=== PATIENT | male | born 1945 | race Caucasian/White ===

== ENCOUNTER → 2016-03-10 | Outpatient (CLI) | payer MEDICARE, OTHER ==
--- NOTE | 2016-03-10 13:40 | NM ---
EXAMINATION TYPE: NM bone 3 phase DATE OF EXAM: 03/10/2016 1:24 PM COMPARISON: NONE HISTORY: Pain right fifth toe Triple phase bone scintigraphy was performed following the injection of27.1 mCi Tc 99m MDP. Immediat e images and 5.5 hours post injection images acquired.Due to camera error no flow images were obtaine d. FINDINGS: There is mild increased radiotracer accumulation noted to involve the right fifth toe on the blood po ol and delayed images which is nonspecific and could be related to degenerative change, posttraumatic change and less likely osteomyelitis. There is also uptake noted to involve the third and first toes as well as moderately severe uptake noted to involve the tibiotalar joint space and region of the ta rsal navicular. IMPRESSION: Nonspecific increased radiotracer accumulation as discussed.
== END | disposition home or self-care (01) ==
LOC: RADNMMAIN 07:07
PROVIDERS: ATTEND Podiatrist
DX: L03.031 Cellulitis of right toe (principal)
CPT/HCPCS: 78315; A9503

== ENCOUNTER 2016-05-03 22:44 | Emergency (ER) | payer MEDICARE, OTHER ==
[2016-05-03 22:51] VITALS: RESP 18
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
[2016-05-04 00:39] LABS: Appearance,Urine Turbid (Clear); Bacteria,Urine Many /hpf; Bilirubin,Urine Negative (Negative); Glucose,Urine (UA) Negative (Negative); Ketones,Urine Negative (Negative); Leukocyte Esterase,Urine Large (Negative); Mucus,Urine Rare /hpf; Nitrite,Urine Positive (Negative); PH, Urine 5.5 (5.0-8.0); Particle Count 25761; Protein,Urine 1+ (Negative); RBC,Urine 72 /hpf (0-5); Specific Gravity,Urine 1.014 (1.001-1.035); UA Billing (MACRO vs. MICRO) MICRO; Urobilinogen,Urine <2.0 mg/dL (<2.0); WBC,Urine >182 /hpf (0-5)
[2016-05-04] MEDS ORDERED: LEVOFLOXACIN 500 MG TAB PO STA (00:45)
[2016-05-04 01:07] VITALS: BP 139/69; PULSE 88; TEMP 97.8
--- NOTE | 2016-05-04 01:33 | XR ---
EXAM: XR Chest, 2 Views. CLINICAL HISTORY: Reason: Pain TECHNIQUE: Frontal and lateral views of the chest. COMPARISON: Portable chest radiograph 10/08/2014 FINDINGS: Lungs: Lungs are clear. Pleural space: No evidence of pleural effusion. No pneumothorax. Heart: Heart size and mediastinal structures are within normal limits. Mediastinum: Unremarkable. Bones/joints: Unremarkable. Tubes, lines and devices: Dual lead cardiac pacer is present. IMPRESSION: No evidence of active chest disease.
== END 2016-05-04 01:08 | disposition home or self-care (01) ==
LOC: EC 22:44
DX: N39.0 Urinary tract infection, site not specified (principal); I10 Essential (primary) hypertension; I25.2 Old myocardial infarction; E07.9 Disorder of thyroid, unspecified; F31.9 Bipolar disorder, unspecified; F41.9 Anxiety disorder, unspecified; M19.90 Unspecified osteoarthritis, unspecified site; J45.909 Unspecified asthma, uncomplicated; J44.9 Chronic obstructive pulmonary disease, unspecified; Z87.891 Personal history of nicotine dependence; Z79.899 Other long term (current) drug therapy; Z87.448 Personal history of other diseases of urinary system; Z95.0 Presence of cardiac pacemaker
CPT/HCPCS: 51798; 71020; 81001; 87077; 87086; 87186; 99284

== ENCOUNTER 2016-05-12 22:37 | Emergency (ER) | payer MEDICARE, OTHER ==
[2016-05-12 23:03] VITALS: BP 153/84; PULSE 100; RESP 16; TEMP 97.8
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
== END 2016-05-13 00:43 | disposition home or self-care (01) ==
LOC: EC 22:37
DX: F31.9 Bipolar disorder, unspecified (principal); E07.9 Disorder of thyroid, unspecified; I10 Essential (primary) hypertension; F41.9 Anxiety disorder, unspecified; R45.850 Homicidal ideations; Z89.512 Acquired absence of left leg below knee; Z96.651 Presence of right artificial knee joint; Z87.891 Personal history of nicotine dependence; Z79.899 Other long term (current) drug therapy
CPT/HCPCS: 82075; 99284

== ENCOUNTER → 2017-04-20 | Outpatient (CLI) | payer MEDICARE, OTHER ==
[2017-04-20 10:40] LABS: Uric Acid 6.6 mg/dL (3.5-8.5)
== END | disposition home or self-care (01) ==
LOC: LABWHC1 10:11
PROVIDERS: ATTEND Podiatrist
DX: M10.9 Gout, unspecified (principal)
CPT/HCPCS: 36415; 82565; 84450; 84460; 84520; 84550

== ENCOUNTER → 2018-01-07 | Outpatient (CLI) | payer MEDICARE, OTHER ==
[2018-01-07 16:44] LABS: Uric Acid 5.4 mg/dL (3.7-8.7)
== END | disposition home or self-care (01) ==
LOC: LABWHC1 10:11
PROVIDERS: ATTEND Podiatrist
DX: M10.9 Gout, unspecified (principal)
CPT/HCPCS: 36415; 82565; 84450; 84460; 84520; 84550

== ENCOUNTER 2018-08-11 07:50 | Emergency (ER) | payer MEDICARE, OTHER ==
[2018-08-11 08:21] VITALS: RESP 18
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
--- NOTE | 2018-08-11 08:29 | CT ---
EXAMINATION TYPE: CT cervical spine wo con DATE OF EXAM: 08/11/2018 COMPARISON: 12/23/2014 HISTORY: Neck pain for [address] DLP: 376.1 mGycm Automated exposure control for dose reduction was used. TECHNIQUE: CT scan of the cervical spine is obtained without contrast, axial images are obtained, sa gittal and coronal reformatted images are also reviewed. FINDINGS: Cervical spine is visualized in its entirety from C1 through upper thoracic levels, demonst rates satisfactory alignment without evidence of acute fracture or dislocation. Prevertebral soft ti ssue appears within normal limits. The C1-C2 articulation is within normal limits on the coronal chilango ges. Assessment spinal canal is nondiagnostic due to artifact resolution. There is multilevel facet arthropathy and degenerative disc disease with most marked findings C5-6 an d C6-C7. Severe left-sided foraminal encroachment at C5-C6 moderate to severe foraminal encroachment bilaterally at C6-C7. 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 Pacemaker leads are i ncidentally noted. IMPRESSION: 1. Assessment spinal canal nondiagnostic due to resolution artifact. This requires MRI for proper ernesto luation. 2. Multilevel degenerative disc disease and facet arthropathy with multilevel foraminal encroachment. Correlate with MRI.
[2018-08-11 09:41] VITALS: BP 121/87; PULSE 77; TEMP 98
== END 2018-08-11 09:45 | disposition home or self-care (01) ==
LOC: EC 07:50
DX: S16.1XXA Strain of muscle, fascia and tendon at neck level, initial encounter (principal); M62.838 Other muscle spasm; J44.9 Chronic obstructive pulmonary disease, unspecified; I10 Essential (primary) hypertension; I25.2 Old myocardial infarction; E07.9 Disorder of thyroid, unspecified; F41.9 Anxiety disorder, unspecified; F31.9 Bipolar disorder, unspecified; F17.200 Nicotine dependence, unspecified, uncomplicated; Z79.890 Hormone replacement therapy; Z79.899 Other long term (current) drug therapy; Z95.0 Presence of cardiac pacemaker; Z96.651 Presence of right artificial knee joint; Z89.512 Acquired absence of left leg below knee; W05.0XXA Fall from non-moving wheelchair, initial encounter; Y92.009 Unspecified place in unspecified non-institutional (private) residence as the place of occurrence of the external cause
CPT/HCPCS: 72125; 99284

== ENCOUNTER 2019-03-07 11:13 | Emergency (ER) | payer MEDICARE, OTHER ==
[2019-03-07 11:17] VITALS: RESP 20
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
--- NOTE | 2019-03-07 12:42 | CT ---
EXAMINATION TYPE: CT brain [place] DATE OF EXAM: 03/07/2019 COMPARISON: None HISTORY: Fall today with head injury. CT DLP: 1505.[address] of the brain was performed. The ventricles, basal cisterns and sulci overlying the cerebral convexities demonstrate moderate enla rgement. There is no evidence for intracranial hemorrhage or sulcal effacement. There is decreased attenuatio n about the periventricular white matter and deep white matter of both cerebral hemispheres, compatib le with chronic small vessel ischemia. No mass effects are seen. If symptoms persist consider MRI. Osseous calvarium is intact. IMPRESSION: 1. Age related atrophic and chronic small vessel ischemic change without acute intracranial process seen at this time. CT Cervical Spine: Unenhanced CT of the cervical spine was performed with bone and soft tissue window settings submitted . Coronal and sagittal reconstruction is obtained. There is normal alignment and prevertebral soft tissues. No evidence for acute cervical fracture . Scattered degenerative disc disease and spondylosis. Biapical scarring. IMPRESSION: 1. No evidence for acute fracture or subluxation of the cervical spine.
[2019-03-07 13:29] VITALS: BP 129/80; PULSE 91; TEMP 97
== END 2019-03-07 13:29 | disposition home or self-care (01) ==
LOC: EC 11:13
DX: S00.01XA Abrasion of scalp, initial encounter (principal); H21.561 Pupillary abnormality, right eye; J44.9 Chronic obstructive pulmonary disease, unspecified; I10 Essential (primary) hypertension; I25.2 Old myocardial infarction; E07.9 Disorder of thyroid, unspecified; H54.61 Unqualified visual loss, right eye, normal vision left eye; M19.90 Unspecified osteoarthritis, unspecified site; F31.9 Bipolar disorder, unspecified; F41.9 Anxiety disorder, unspecified; F17.200 Nicotine dependence, unspecified, uncomplicated; Z79.890 Hormone replacement therapy; Z79.899 Other long term (current) drug therapy; Z86.14 Personal history of Methicillin resistant Staphylococcus aureus infection; Z89.512 Acquired absence of left leg below knee; Z95.0 Presence of cardiac pacemaker; Z96.651 Presence of right artificial knee joint; W20.8XXA Other cause of strike by thrown, projected or falling object, initial encounter; Y92.009 Unspecified place in unspecified non-institutional (private) residence as the place of occurrence of the external cause
CPT/HCPCS: 70450; 72125; 99284

== ENCOUNTER 2019-04-07 11:53 | Inpatient (IN) | payer MEDICARE, OTHER ==
[2019-04-07] MEDS ORDERED: IBUPROFEN 600 MG TAB PO STA (12:39)
[2019-04-07] MEDS ORDERED: SODIUM CHLORIDE 0.9% 1,000 ML IV STA (12:39)
[2019-04-07] MEDS ORDERED: methylPREDNISolone SOD SUCCI 125 MG/2 ML VIAL IV STA (12:40)
[2019-04-07] MEDS ORDERED: IPRATROPIUM-ALBUTEROL 3 ML NEB INHALATION STA (12:40)
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
[2019-04-07 13:26] LABS: Basophils # (A) 0.1 k/uL (0-0.2); Basophils % (A) 1 %; Eosinophils # (A) 0.3 k/uL (0-0.7); Eosinophils % (A) 4 %; HCT 40.8 % (39.0-53.0); HGB 13.8 gm/dL (13.0-17.5); Lymphocytes # (A) 0.5 k/uL (1.0-4.8); Lymphocytes % (A) 6 %; MCH 30.8 pg (25.0-35.0); MCHC 33.9 g/dL (31.0-37.0); Mean Platelet Volume 7.7; Monocytes # (A) 0.4 k/uL (0-1.0); Monocytes % (A) 5 %; Neutrophils # (A) 7.4 k/uL (1.3-7.7); Neutrophils % (A) 82 %; Platelet Count 193 k/uL (150-450); RBC 4.49 m/uL (4.30-5.90); RDW 14.4 % (11.5-15.5)
[2019-04-07 13:38] LABS: Albumin 4.3 g/dL (3.5-5.0); Calcium 8.7 mg/dL (8.4-10.2); Potassium 4.4 mmol/L (3.5-5.1); Total Bilirubin 1.2 mg/dL (0.2-1.3)
[2019-04-07 13:46] LABS: Amorphous Sediment,Urine Rare /hpf; Appearance,Urine Clear (Clear); Bacteria,Urine Moderate /hpf; Bilirubin,Urine Negative (Negative); Blood,Urine Negative (Negative); Color,Urine Yellow; Glucose,Urine (UA) Negative (Negative); Hyaline Casts,Urine 3 /lpf (0-2); Ketones,Urine Negative (Negative); Leukocyte Esterase,Urine Large (Negative); Mucus,Urine Rare /hpf; Nitrite,Urine Negative (Negative); PH, Urine 5.5 (5.0-8.0); Protein,Urine 1+ (Negative); RBC,Urine 4 /hpf (0-5); Specific Gravity,Urine 1.014 (1.001-1.035); Squamous Epithelial Cell,Urine 1 /hpf (0-4); Urobilinogen,Urine <2.0 mg/dL (<2.0); WBC,Urine 35 /hpf (0-5)
--- NOTE | 2019-04-07 15:14 | XR ---
EXAMINATION TYPE: XR chest 2V DATE OF EXAM: 04/07/2019 COMPARISON: Prior chest x-ray May 04, 2016. HISTORY: Fever. TECHNIQUE: Frontal and lateral views of the chest are obtained. FINDINGS: The osseous structures are intact. Persistent cardiomegaly with dual lead pacemaker and at herosclerotic aortic knob. Chronic parenchymal changes with some increased interstitial markings. Ret iculonodular opacities bibasilar region on lateral view unchanged from prior study presumed chronic. No new suspicious focal airspace opacity, pleural effusion, or pneumothorax evident bilaterally. IMPRESSION: Perhaps mild interstitial edema on background chronic changes and cardiomegaly. No new s uspicious focal infiltrate.
[2019-04-07] MEDS ORDERED: ACETAMINOPHEN TAB 325 MG TAB PO PRN (15:31)
[2019-04-07] MEDS: methylPREDNISolone SOD SUCCI 125 MG/2 ML VIAL IV SCH ×2 (17:39→23:09)
[2019-04-07] MEDS: CEPHALEXIN 500 MG CAP PO SCH ×2 (17:43→22:01)
[2019-04-07] MEDS ORDERED: ALBUTEROL NEBULIZED 2.5 MG/3 ML INHALATION PRN (20:17)
[2019-04-07] MEDS ORDERED: Acetaminophen-Codeine 300-30mg TAB PO SCH (20:30)
[2019-04-07] MEDS: OSELTAMIVIR 75 MG CAP PO SCH (22:01)
[2019-04-07] MEDS: QUEtiapine 100 MG TAB PO SCH (22:01)
[2019-04-07] MEDS ORDERED: Acetaminophen-Codeine 300-30mg TAB PO PRN (23:30)
[2019-04-08] MEDS: methylPREDNISolone SOD SUCCI 125 MG/2 ML VIAL IV SCH ×4 (05:42→23:53)
[2019-04-08] MEDS: LEVOTHYROXINE 125 MCG TAB PO SCH (05:43)
[2019-04-08] MEDS: IPRATROPIUM-ALBUTEROL 3 ML NEB INHALATION PRN ×2 (08:04→11:51)
[2019-04-08] MEDS: CEPHALEXIN 500 MG CAP PO SCH ×3 (08:31→20:34)
[2019-04-08] MEDS: ALLOPURINOL 300 MG TAB PO SCH (08:31)
[2019-04-08] MEDS: DULoxetine HCL 60 MG CAPSULE.DR PO SCH (08:31)
[2019-04-08] MEDS: METOPROLOL TARTRATE 25 MG TAB PO SCH (08:31)
[2019-04-08] MEDS: OSELTAMIVIR 75 MG CAP PO SCH ×2 (08:31→20:34)
[2019-04-08] MEDS: FENOFIBRATE 160 MG TAB PO SCH (08:31)
[2019-04-08] MEDS: buPROPion XL 300 MG TAB.ER.24H PO SCH (08:32)
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
[2019-04-08] MEDS: QUEtiapine 100 MG TAB PO SCH (20:33)
[2019-04-09] MEDS: LEVOTHYROXINE 125 MCG TAB PO SCH (05:06)
[2019-04-09] MEDS: methylPREDNISolone SOD SUCCI 125 MG/2 ML VIAL IV SCH ×2 (05:06→11:51)
[2019-04-09] MEDS: OSELTAMIVIR 75 MG CAP PO SCH (07:30)
[2019-04-09] MEDS: ALLOPURINOL 300 MG TAB PO SCH (07:30)
[2019-04-09] MEDS: FENOFIBRATE 160 MG TAB PO SCH (07:30)
[2019-04-09] MEDS: METOPROLOL TARTRATE 25 MG TAB PO SCH (07:30)
[2019-04-09] MEDS: CEPHALEXIN 500 MG CAP PO SCH (07:30)
[2019-04-09] MEDS: DULoxetine HCL 60 MG CAPSULE.DR PO SCH (07:30)
[2019-04-09] MEDS: buPROPion XL 300 MG TAB.ER.24H PO SCH (07:32)
[2019-04-09 08:47] LABS: Basophils % (A) 0 %; Eosinophils % (A) 0 %; HCT 38.7 % (39.0-53.0); HGB 12.7 gm/dL (13.0-17.5); Lymphocytes # (A) 0.7 k/uL (1.0-4.8); Lymphocytes % (A) 7 %; MCH 30.8 pg (25.0-35.0); MCHC 32.8 g/dL (31.0-37.0); MCV 93.8 fL (80.0-100.0); Mean Platelet Volume 8.4; Monocytes # (A) 0.3 k/uL (0-1.0); Monocytes % (A) 2 %; Neutrophils # (A) 9.9 k/uL (1.3-7.7); Neutrophils % (A) 90 %; Platelet Count 204 k/uL (150-450); RBC 4.12 m/uL (4.30-5.90); RDW 14.4 % (11.5-15.5); WBC 10.9 k/uL (3.8-10.6)
[2019-04-09 08:59] LABS: Albumin 3.6 g/dL (3.5-5.0); Calcium 8.2 mg/dL (8.4-10.2); Potassium 4.6 mmol/L (3.5-5.1); Total Bilirubin 0.4 mg/dL (0.2-1.3); Total Protein 6.1 g/dL (6.3-8.2)
--- NOTE | 2019-04-09 12:38 | P.DS ---
Providers Date of admission: 04/09/19 10:04 Expected date of discharge: 04/09/19 Attending physician: Sumanth Mckeon Primary care physician: Sumanth Mckeon Hospital Course: Patient was admitted to the hospital with Influenza A, COPD exacerbation, and acute UTI, Tamiflu and Keflex initiated, he currently denies shortness of breath and reports feeling better and would like to be discharged home. Assessment: Influenza A+ COPD exacerbation secondary to influenza A Acute urinary tract infection culture pending History of asthma History of smoking remote History of hypothyroidism Hypertension controlled History of hyperlipidemia Plan: Discharge home with Tamiflu for influenza Discharge home with Keflex for acute UTI Follow up with Dr. Mckeon in 1-2 days Patient Condition at Discharge: Fair Plan - Discharge Summary Discharge Rx Participant: No New Discharge Prescriptions: New Cephalexin [Keflex] 500 mg PO TID 5 Days #15 cap Oseltamivir [Tamiflu] 75 mg PO Q12HR 3 Days #5 cap Continue QUEtiapine [SEROquel] 100 mg PO HS buPROPion HCL [Wellbutrin XL] 300 mg PO DAILY@0800 DULoxetine HCL [Cymbalta] 60 mg PO DAILY Albuterol Inhaler [Ventolin Hfa Inhaler] 2 puff INHALATION RT-Q4H PRN PRN Reason: Shortness Of Breath Fenofibrate Nanocrystallized [Tricor] 145 mg PO DAILY Metoprolol Tartrate [Lopressor] 25 mg PO DAILY Levothyroxine Sodium [Synthroid] 125 mcg PO DAILY buPROPion HCL [Wellbutrin XL] 150 mg PO DAILY Allopurinol [Zyloprim] 300 mg PO DAILY Acetaminophen-Codeine 300-30mg [Tylenol w/codeine #3] 1 tab PO Q6H Discontinued Oseltamivir [Tamiflu] 75 mg PO Q12HR Discharge Medication List QUEtiapine [SEROquel] 100 mg PO HS 12/02/13 [History] buPROPion HCL [Wellbutrin XL] 300 mg PO DAILY@0800 12/03/13 [History] DULoxetine HCL [Cymbalta] 60 mg PO DAILY 05/12/16 [History] Acetaminophen-Codeine 300-30mg [Tylenol w/codeine #3] 1 tab PO Q6H 04/07/19 [History] Albuterol Inhaler [Ventolin Hfa Inhaler] 2 puff INHALATION RT-Q4H PRN 04/07/19 [History] Allopurinol [Zyloprim] 300 mg PO DAILY 04/07/19 [History] Fenofibrate Nanocrystallized [Tricor] 145 mg PO DAILY 04/07/19 [History] Levothyroxine Sodium [Synthroid] 125 mcg PO DAILY 04/07/19 [History] Metoprolol Tartrate [Lopressor] 25 mg PO DAILY 04/07/19 [History] buPROPion HCL [Wellbutrin XL] 150 mg PO DAILY 04/07/19 [History] Cephalexin [Keflex] 500 mg PO TID 5 Days #15 cap 04/09/19 [Rx] Oseltamivir [Tamiflu] 75 mg PO Q12HR 3 Days #5 cap 04/09/19 [Rx] Follow up Appointment(s)/Referral(s): Sumanth Mckeon MD [Primary Care Provider] - 04/10/19 1:00 pm Patient Instructions/Handouts: Influenza (DC) Activity/Diet/Wound Care/Special Instructions: Patients Electric W/C is at his apartment, per [facility] office (it was picked up from the clinic). Please call [facility] for transport home, they will have someone black pickler patient and drive home.
[2019-04-09 14:49] VITALS: BP 106/63; PULSE 79; RESP 18; TEMP 97.5
[2019-04-09] MEDS ORDERED: CEPHALEXIN 500 MG CAP PO SCH (21:00)
== END 2019-04-09 14:31 | disposition home or self-care (01) | DRG 194 ==
LOC: EC 11:53 → 6NMEDSUR 15:22 → OBSVTOIN 04-09 10:04
PROVIDERS: ADMIT Family Medicine; ATTEND Family Medicine
DX: J10.1 Influenza due to other identified influenza virus with other respiratory manifestations (principal); J44.1 Chronic obstructive pulmonary disease with (acute) exacerbation; N39.0 Urinary tract infection, site not specified; I10 Essential (primary) hypertension; E78.5 Hyperlipidemia, unspecified; F41.9 Anxiety disorder, unspecified; F31.9 Bipolar disorder, unspecified; H54.7 Unspecified visual loss; R06.03 Acute respiratory distress; M19.90 Unspecified osteoarthritis, unspecified site; H26.9 Unspecified cataract; R26.2 Difficulty in walking, not elsewhere classified; E86.0 Dehydration; N32.81 Overactive bladder; E66.9 Obesity, unspecified; E03.9 Hypothyroidism, unspecified; I25.2 Old myocardial infarction; Z68.25 Body mass index [BMI] 25.0-25.9, adult; Z87.891 Personal history of nicotine dependence; Z79.899 Other long term (current) drug therapy; Z79.890 Hormone replacement therapy; Z89.512 Acquired absence of left leg below knee; Z95.0 Presence of cardiac pacemaker; Z99.81 Dependence on supplemental oxygen; Z86.14 Personal history of Methicillin resistant Staphylococcus aureus infection; Z96.651 Presence of right artificial knee joint; Z86.19 Personal history of other infectious and parasitic diseases; Z90.49 Acquired absence of other specified parts of digestive tract; Z80.1 Family history of malignant neoplasm of trachea, bronchus and lung; Z82.0 Family history of epilepsy and other diseases of the nervous system
CPT/HCPCS: 36415; 71046; 80053; 81001; 83605; 85025; 87077; 87086; 87186; 87502; 94640; 96361; 96374; 96376; 99284

== ENCOUNTER → 2020-01-09 | Day surgery (SDC) | payer MEDICARE, OTHER ==
[2020-01-08 10:33] VITALS: BMI 25.4
[~2020-01-09] MED LIST: ACETAMINOPHEN TAB 325 MG TAB PO PRN; CEPHALEXIN 500 MG CAP PO SCH; LIDOCAINE 1% INJ 10MG/ML (20 ML MDV) ONE; LIDOCAINE 1% INJ 10MG/ML (20 ML MDV) SQ ONE; MIDAZOLAM 2 MG/2 ML VIAL IV ONE; SODIUM CHLORIDE 0.9% 1,000 ML IV SCH; ceFAZolin 1,000 MG in SODIUM CHLORIDE 0.9% IRRIGATIO 250 ML IRRIGATION ONE; fentaNYL (PF) 50 MCG/ML 2 ML AMP IV ONE; fentaNYL (PF) 50 MCG/ML 2 ML AMP ONE
[2020-01-09 07:56] VITALS: RESP 18; TEMP 97.9
[2020-01-09 08:02] LABS: Basophils # (A) 0.1 k/uL (0-0.2); Basophils % (A) 1 %; Eosinophils # (A) 0.7 k/uL (0-0.7); Eosinophils % (A) 8 %; HCT 44.3 % (39.0-53.0); HGB 14.8 gm/dL (13.0-17.5); Lymphocytes # (A) 1.7 k/uL (1.0-4.8); Lymphocytes % (A) 20 %; MCH 29.6 pg (25.0-35.0); MCHC 33.3 g/dL (31.0-37.0); MCV 88.8 fL (80.0-100.0); Mean Platelet Volume 7.3; Monocytes # (A) 0.5 k/uL (0-1.0); Monocytes % (A) 6 %; Neutrophils # (A) 5.4 k/uL (1.3-7.7); Neutrophils % (A) 63 %; Platelet Count 194 k/uL (150-450); RBC 4.99 m/uL (4.30-5.90); RDW 15.1 % (11.5-15.5); WBC 8.4 k/uL (3.8-10.6)
[2020-01-09 08:15] LABS: Calcium 9.2 mg/dL (8.4-10.2); Potassium 4.1 mmol/L (3.5-5.1)
--- NOTE | 2020-01-09 10:26 | P.PCN ---
Date of Procedure: 01/09/20 Preoperative Diagnosis: Battery depletion Postoperative Diagnosis: The same Procedure(s) Performed: Generator change Description of Procedure: HISTORY: This is a 74-year-old gentleman with history of permanent pacemaker about 16 years ago. Patient has reached [facility], about a month ago. Patient is advised to have battery replacement. CONSENT: Dr. Nascimento has discussed the risks and benefits as related to the above mentioned procedure and both sedation/analgesia as well as necessary blood product administration. The patient has indicated understanding and acceptance of the risks of the procedure discussed. PROCEDURE: Patient was brought to the lab in a fasting state. Patient was given IV Versed and fentanyl for sedation. The skin over the existing pulse generator was infiltrated with lidocaine. An incision was made in the skin and was deepened until the pectoral fascia was exposed. Hemostasis was obtained. The existing pulse generator was pulled out of the pocket. There were extensive dense of adhesions requiring careful release of medications using blunt dissection and cautery. There was difficulty disconnected from the leads from the plan. After several manipulations and using the oil, we were able to disconnect ventricular lead from the header. The leads were then individually checked for thresholds. Conscious Sedation: Versed 2mg Fentanyl 50 g Duration 55minutes THRESHOLDS: ATRIAL: The minimum patient threshold in the atrium was 0.5 V at pulse width of 0.4. Impedance is 440 ohms P-wave: More than 5 VENTRICULAR: The minimum patient threshold was 0.75 V at pulse width of 0.4 ms. The impedance is 6 and plan. The R-wave is 7.5 mV] THE LEADS: ATRIAL: This is manufactured by [employer]. The model number is 1688TC/46 cm [id number] VENTRICULAR: This is manufactured by [employer]. The model number is 1646 T/58 cm and the serial number is [id number] THE EXPLANTED DEVICE: THE NEW DEVICE: [] The leads were then connected to a new pulse generator. Pacemaker seems to function normally. The pocket was irrigated with antibiotics. The pocket was closed in the usual fashion. Pectoral fascia was closed with 2-0 Prolene, the subcutaneous tissue was closed with 3-0 Prolene and the skin was closed with 4-0 Prolene. Patient tolerated the procedure well . Patient will be monitored on the telemetry unit for 2-3 hours. If stable patient be discharged home later today. PLAN: continue home medications. Prophylactic antibiotics. FALLOW UP: With Dr. Nascimento in one week
--- NOTE | 2020-01-09 11:05 | XR ---
EXAMINATION TYPE: XR chest 1V portable DATE OF EXAM: 01/09/2020 COMPARISON: 04/07/2019 INDICATION: Lead placement check TECHNIQUE: Single frontal view of the chest is obtained. FINDINGS: The heart size is normal. The pulmonary vasculature is normal. Lung hancock are clear Pacemaker overlies left chest. IMPRESSION: 1. No acute pulmonary process.
[2020-01-09 13:16] VITALS: BP 108/51; PULSE 76
== END | disposition home or self-care (01) ==
LOC: CATHEP 07:31
PROVIDERS: ATTEND Internal Medicine Cardiovascular Disease
DX: Z45.010 Encounter for checking and testing of cardiac pacemaker pulse generator [battery] (principal); I49.5 Sick sinus syndrome; I35.1 Nonrheumatic aortic (valve) insufficiency; Z89.612 Acquired absence of left leg above knee; M19.90 Unspecified osteoarthritis, unspecified site; J44.9 Chronic obstructive pulmonary disease, unspecified; E07.9 Disorder of thyroid, unspecified; Z87.891 Personal history of nicotine dependence; I48.0 Paroxysmal atrial fibrillation; Z79.899 Other long term (current) drug therapy
CPT/HCPCS: 33228; 80048; 85025; 71045; C1785; J2250; J0690; J2001; J3010

== ENCOUNTER → 2020-04-01 | Outpatient (CLI) | payer MEDICARE, OTHER ==
--- NOTE | 2020-04-01 10:13 | US ---
EXAMINATION TYPE: US duplex aorta DATE OF EXAM: 04/01/2020 COMPARISON: NONE CLINICAL HISTORY: Z13.6 Screening for cardiovascular disorders. EXAM MEASUREMENTS: Abdominal Aorta: Proximal: 2.2 x 2.4cm Mid: obscured Distal: 1.7 x 1.7cm Right Iliac: 1.0 x 1.5cm Left Iliac: 1.0 x 1.2cm Difficult and limited study due to patient body habitus and overlying midline bowel gas IMPRESSION: No AAA seen at this time
== END | disposition home or self-care (01) ==
LOC: EEVIPCON 09:40 → RADUSWWP 09:41
PROVIDERS: ATTEND Family Medicine
DX: Z13.6 Encounter for screening for cardiovascular disorders (principal)
CPT/HCPCS: 93979

== ENCOUNTER 2020-09-26 08:06 | Emergency (ER) | payer MEDICARE, OTHER ==
[2020-09-26 08:15] VITALS: RESP 18
[2020-09-26] MEDS ORDERED: KETOROLAC 15 MG/ML 1 ML VIAL IM STA (08:50)
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
--- NOTE | 2020-09-26 09:39 | CT ---
EXAMINATION TYPE: CT brain wo con DATE OF EXAM: 09/26/2020 COMPARISON: 03/07/2019 HISTORY: Fall out of bed, pt c/o Rt sided facial pain CT DLP: 1329.4 mGycm Automated exposure control for dose reduction was used. FINDINGS: There is marked enlargement of the ventricular system and mild enlargement of the basal cisterns and sulci over the convexities consistent with moderate to marked atrophy with a greater central componen t. There is no mass effect or shift of the midline structures. No abnormal density is seen throughout the brain parenchyma and there is no acute intra or extra-axia l hemorrhage. The posterior fossa is grossly normal. There are postsurgical changes involving the orbits with a probable scleral buckle in the right globe . The paranasal sinuses and mastoid air cells are well aerated. IMPRESSION: 1. No acute bleed or mass effect. 2. Moderate to marked atrophy with a greater central component. 3. No interval change the prior study dated 03/07/2019.
--- NOTE | 2020-09-26 09:41 | CT ---
EXAMINATION TYPE: CT facial bones wo con DATE OF EXAM: 09/26/2020 COMPARISON: None HISTORY: Fall out of bed, pt c/o Rt sided facial pain CT DLP: 1329.4 mGycm Automated exposure control for dose reduction was used. TECHNIQUE: CT scan of the sinuses is performed without contrast, axial images are obtained, coronal r eformatted images are also reviewed. FINDINGS: The paranasal sinuses including the frontal, ethmoid, sphenoid, and maxillary sinuses bila terally are well-aerated without abnormal opacification. The ostiomeatal complex is patent bilateral ly on the coronal images. There is deviation nasal septum to the left. Visualized portion of mastoid air cells show no abnormal opacification. There are postsurgical change s of the globes. The osseous structures are intact without fracture or focal intraosseous abnormality.. IMPRESSION: No acute trauma to the facial bones.
[2020-09-26 10:28] VITALS: BP 110/77; PULSE 85; TEMP 97.7
== END 2020-09-26 10:21 | disposition home or self-care (01) ==
LOC: EC 08:06
DX: S00.03XA Contusion of scalp, initial encounter (principal); E78.5 Hyperlipidemia, unspecified; F17.200 Nicotine dependence, unspecified, uncomplicated; I10 Essential (primary) hypertension; I25.2 Old myocardial infarction; J44.9 Chronic obstructive pulmonary disease, unspecified; M10.9 Gout, unspecified; M19.90 Unspecified osteoarthritis, unspecified site; E07.9 Disorder of thyroid, unspecified; Z79.890 Hormone replacement therapy; Z79.899 Other long term (current) drug therapy; W06.XXXA Fall from bed, initial encounter; W22.03XA Walked into furniture, initial encounter
CPT/HCPCS: 70486; 70450; 99284; 96372; J1885

== ENCOUNTER → 2020-09-28 | Outpatient (CLI) | payer MEDICARE, OTHER ==
--- NOTE | 2020-09-29 08:42 | XR ---
EXAMINATION TYPE: XR mandible complete DATE OF EXAM: 09/28/2020 COMPARISON: Radiograph 09/26/2020 HISTORY: 75-year-old male M2 6.629, mandibular pain after a fall from wheelchair. TECHNIQUE: 9 views including open and closed mouth views. FINDINGS: Prominent leftward nasal septal deviation. No abnormal layering fluid within the maxillary sinuses. Mild flattening to the right mandibular condylar contour suggests some underlying degenerative change . The patient is edentulous. No mandibular fracture is identified. Appropriate anterior subluxation o n the open-mouth views. No dislocation seen. IMPRESSION: Slight flattening of the right mandibular condylar contour suggesting underlying mild TMJ OA. No acut e mandibular fracture seen. Appropriate anterior subluxation on both sides with the open-mouth view. Leftward nasal septal deviation.
== END | disposition home or self-care (01) ==
LOC: RADXRMAIN 14:42
PROVIDERS: ATTEND Nurse Practitioner
DX: M26.629 Arthralgia of temporomandibular joint, unspecified side (principal)
CPT/HCPCS: 70110

== ENCOUNTER 2021-02-24 01:08 | Emergency (ER) | payer MEDICARE, OTHER ==
[2021-02-24 01:20] VITALS: PULSE 93; RESP 16; TEMP 99
[2021-02-24] MEDS ORDERED: HYDROmorphone 1 MG/ML 1 ML SYRINGE IM STA (01:26)
[2021-02-24] MEDS ORDERED: KETOROLAC 15 MG/ML 1 ML VIAL IM STA (01:26)
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
[2021-02-24] MEDS ORDERED: HYDROmorphone 0.5 MG/0.5 ML SYRINGE IM STA (02:30)
[2021-02-24 02:31] VITALS: BP 138/94
[2021-02-24] MEDS ORDERED: ACET/COD 300 MG/30 MG STARTER PACK 6 TAB BTL PO STA (02:34)
== END 2021-02-24 03:11 | disposition home or self-care (01) ==
LOC: EC 01:08
DX: M10.9 Gout, unspecified (principal); F17.200 Nicotine dependence, unspecified, uncomplicated; J44.9 Chronic obstructive pulmonary disease, unspecified; E78.5 Hyperlipidemia, unspecified; E07.9 Disorder of thyroid, unspecified; I25.2 Old myocardial infarction; I10 Essential (primary) hypertension; Z79.899 Other long term (current) drug therapy; Z79.890 Hormone replacement therapy
CPT/HCPCS: 99283; 96372; J1170; J1885

== ENCOUNTER 2021-02-24 20:25 | Emergency (ER) | payer MEDICARE, OTHER ==
[2021-02-24 20:44] VITALS: TEMP 98
[2021-02-24 22:20] VITALS: PULSE 91; RESP 16
[2021-02-24] MEDS ORDERED: DEXAMETHASONE SOD PHOSPHATE 10 MG/ML 1 ML VIAL IM STA (23:01)
[2021-02-24] MEDS ORDERED: Acetaminophen-Codeine 300-30mg TAB PO STA (23:01)
[2021-02-24] MEDS ORDERED: IBUPROFEN 600 MG TAB PO STA (23:01)
[2021-02-24] MEDS ORDERED: PROCHLORPERAZINE 5 MG TAB PO STA (23:01)
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
--- NOTE | 2021-02-24 23:42 | XR ---
EXAMINATION TYPE: XR wrist complete LT DATE OF EXAM: 02/24/2021 COMPARISON: NONE HISTORY: Wrist pain TECHNIQUE: 4 views FINDINGS: There is soft tissue swelling around the carpus. There is some spurring of the distal scaph oid bone. There is moderate spurring at the first carpometacarpal joint. I see no fracture or disloca tion. There is small erosions of the ulnar styloid process. There is intact radiocarpal joint. IMPRESSION: Moderate osteoarthritis at the base of the thumb. Small erosion on the ulnar styloid proc ess. No fracture seen.
--- NOTE | 2021-02-24 23:43 | XR ---
EXAMINATION TYPE: XR elbow complete LT DATE OF EXAM: 02/24/2021 COMPARISON: NONE HISTORY: Pain. Gout. TECHNIQUE: 3 view FINDINGS: The elbow joint is anatomic. I see no fracture nor dislocation. There is no sign of joint e ffusion. IMPRESSION: Negative left elbow exam. No evidence of inflammatory arthritis.
[2021-02-24 23:56] VITALS: BP 173/91
[2021-02-25] MEDS ORDERED: IBUPROFEN 600 MG STARTER PACK 4 TAB BTL PO STA (00:03)
[2021-02-25] MEDS ORDERED: traMADol 50 MG STARTER PACK 3 TAB BTL PO STA (00:03)
== END 2021-02-25 00:25 | disposition home or self-care (01) ==
LOC: EC 20:25
DX: R51.9 Headache, unspecified (principal); J45.909 Unspecified asthma, uncomplicated; M79.642 Pain in left hand; M10.022 Idiopathic gout, left elbow; R11.2 Nausea with vomiting, unspecified; M19.041 Primary osteoarthritis, right hand; I10 Essential (primary) hypertension; F17.200 Nicotine dependence, unspecified, uncomplicated; Z79.899 Other long term (current) drug therapy
CPT/HCPCS: 99284 ×2; 96372 ×2; 73080; 73110; S0183; J1100

== ENCOUNTER → 2021-05-18 | Outpatient (CLI) | payer MEDICARE, OTHER ==
--- NOTE | 2021-05-18 23:14 | XR ---
EXAMINATION TYPE: XR chest 2V DATE OF EXAM: 05/18/2021 COMPARISON: X-ray dated 04/07/2019 HISTORY: COPD TECHNIQUE: Frontal and lateral views of the chest are obtained. FINDINGS: Questionable minimal infiltration in the lung bases bilaterally, underlying pulmonary reti culations or subtle groundglass opacity cannot be excluded. Suspected COPD changes. Grossly unremarkable lungs otherwise. No sizable pleural effusion or definite pneumothorax. No gross cardiomegaly. Aortic atherosclerotic calcifications. Left upper chest wall dual-lead pacemaker. Uncha nged bony thoracic cage. IMPRESSION: Questionable bilateral basal pulmonary infiltration/reticulations or groundglass opacities, please co rrelate clinically. This was not well appreciated previously. Repeat x-ray in 6-8 weeks or follow-up CT scan can be considered. Other findings as described above.
--- NOTE | 2021-05-18 23:21 | XR ---
EXAMINATION TYPE: XR lumbosacral spine min 4V DATE OF EXAM: 05/18/2021 COMPARISON: CT dated 09/08/2015 INDICATION: Low back pain TECHNIQUE: Standard 5 views of the lumbar spine. FINDINGS: Mild levoscoliosis of the lumbar spine with apex at L3 level. Exaggerated lumbar lordosis. Mild retro listhesis of L3 over L4, progressed compared to 2016 CT scan. Degenerative changes of the lumbar spine with multilevel opposing endplate osteophytosis. Degenerated L3-4 disc. Suspected bilateral L4-5 facet osteoarthropathy. Arterial atherosclerotic calcifications. Suspected degenerative changes at the inferior aspect of the right sacroiliac joint. IMPRESSION: Degenerative changes of the lumbar spine as described above. Further MRI assessment can be considered .
== END | disposition home or self-care (01) ==
LOC: RADXRMAIN 14:15
PROVIDERS: ATTEND Nurse Practitioner Family
DX: J44.9 Chronic obstructive pulmonary disease, unspecified (principal); M54.50 Low back pain, unspecified
CPT/HCPCS: 71046; 72110

== ENCOUNTER → 2021-10-27 | Outpatient (CLI) | payer OTHER ==
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
== END | disposition home or self-care (01) ==
LOC: RADCTMAIN 12:01
PROVIDERS: ATTEND Family Medicine
DX: S06.9X9A Unspecified intracranial injury with loss of consciousness of unspecified duration, initial encounter (principal); X58.XXXA Exposure to other specified factors, initial encounter
CPT/HCPCS: 70450

== ENCOUNTER → 2022-02-15 | Outpatient (CLI) | payer OTHER ==
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
== END | disposition home or self-care (01) ==
LOC: RADXRMAIN 10:48
PROVIDERS: ATTEND Emergency Medicine
DX: M19.041 Primary osteoarthritis, right hand (principal)

== ENCOUNTER → 2022-04-28 | Outpatient (CLI) | payer OTHER ==
--- NOTE | 2022-04-28 11:58 | XR ---
EXAMINATION TYPE: XR chest 2V DATE OF EXAM: 04/28/2022 11:41 AM COMPARISON: Chest radiographs from 03/22/2022 TECHNIQUE: XR chest 2V Frontal and lateral views of the chest. CLINICAL INDICATION:Male, 77 years old with history of U07.1 Covid 19; FINDINGS: Lungs/Pleura: Blunting of both costophrenic angles. Bibasilar patchy airspace infiltrates. Demonstrat ed which is increased Pulmonary vascularity: Unremarkable. Heart/mediastinum: Cardiomediastinal silhouette is enlarged and stable. Atherosclerotic calcificatio ns are seen in the aorta. Two lead cardiac conduction device overlying the left hemithorax with lead tips projecting over the right ventricle and right atrium. Musculoskeletal: No acute osseous pathology. IMPRESSION: Bibasilar patchy airspace infiltrates with trace bilateral pleural effusions.
== END | disposition home or self-care (01) ==
LOC: RADXRMAIN 11:26
PROVIDERS: ATTEND Nurse Practitioner Adult Health
DX: U07.1 COVID-19 (principal); J90 Pleural effusion, not elsewhere classified; R91.8 Other nonspecific abnormal finding of lung field
CPT/HCPCS: 71046

== ENCOUNTER 2023-02-06 09:35 | Inpatient (IN) | payer OTHER ==
[2023-02-06] MEDS ORDERED: ACETAMINOPHEN TAB 325 MG TAB PO STA (10:15)
[2023-02-06] MEDS ORDERED: IBUPROFEN 600 MG TAB PO STA (10:15)
[2023-02-06] MEDS ORDERED: SODIUM CHLORIDE 0.9% 500 ML 500 ML IV ONE (10:15)
--- NOTE | 2023-02-06 10:39 | XR ---
EXAMINATION TYPE: XR chest 2V DATE OF EXAM: 02/06/2023 10:32 AM CLINICAL INDICATION:Male, 77 years old with history of cough; COMPARISON: Chest radiographs from 04/28/2022. TECHNIQUE: XR chest 2V Frontal and lateral views of the chest. FINDINGS: Lungs/Pleura: Increased interstitial opacities with superimposed airspace opacities felt to be presen t in right lung base. There is no evidence of pleural effusion, focal consolidation, or pneumothorax. Pulmonary vascularity: Unremarkable. Heart/mediastinum: Cardiomediastinal silhouette is enlarged and stable. Two lead cardiac conduction d evice overlying the left hemithorax with lead tips projecting over the right ventricle and right atri um. Musculoskeletal: No acute osseous pathology. IMPRESSION: Fibrotic changes with superimposed right basilar airspace opacities correlate for pneumonia.
[2023-02-06 11:41] LABS: ALT 85 U/L (4-49); AST 66 U/L (17-59); African American GFR (CKD) 66 (>60 ml/min/1.73 sqM); Albumin 4.8 g/dL (3.5-5.0); Alkaline Phosphatase 99 U/L (38-126); Anion Gap 16 mmol/L; Blood Urea Nitrogen 28 mg/dL (9-20); Calcium 9.5 mg/dL (8.4-10.2); Carbon Dioxide 20 mmol/L (22-30); Chloride 108 mmol/L (98-107); Glucose 116 mg/dL (74-99); Non-African American GFR(CKD) 57 (>60 ml/min/1.73 sqM); Potassium 4.3 mmol/L (3.5-5.1); Sodium 144 mmol/L (137-145)
[2023-02-06] MEDS ORDERED: PNEUMONIA PROTOCOL UTILIZED 1 EACH MISC PO PRN (12:17)
[2023-02-06] MEDS ORDERED: AZITHROMYCIN 500 MG in SODIUM CHLORIDE 0.9% 250 ML IVPB STA (12:17)
[2023-02-06 12:26] LABS: Basophils # (A) 0.1 k/uL (0-0.2); Basophils % (A) 1 %; Eosinophils # (A) 0.7 k/uL (0-0.7); Eosinophils % (A) 7 %; HCT 46.2 % (39.0-53.0); HGB 15.6 gm/dL (13.0-17.5); Lymphocytes # (A) 0.5 k/uL (1.0-4.8); Lymphocytes % (A) 5 %; MCH 31.2 pg (25.0-35.0); MCHC 33.8 g/dL (31.0-37.0); MCV 92.2 fL (80.0-100.0); Mean Platelet Volume 8.2; Monocytes # (A) 0.2 k/uL (0-1.0); Monocytes % (A) 2 %; Neutrophils # (A) 8.7 k/uL (1.3-7.7); Neutrophils % (A) 85 %; Platelet Count 178 k/uL (150-450); RBC 5.02 m/uL (4.30-5.90); RDW 13.8 % (11.5-15.5); WBC 10.3 k/uL (3.8-10.6)
[2023-02-06] MEDS ORDERED: SODIUM CHLORIDE 0.9% 1,000 ML IV SCH (12:30)
[2023-02-06] MEDS ORDERED: NALOXONE 0.4 MG/ML 1 ML VIAL IV PRN (12:45)
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
[2023-02-06] MEDS ORDERED: IPRATROPIUM-ALBUTEROL 3 ML NEB INHALATION PRN (15:51)
[2023-02-06] MEDS ORDERED: ALBUTEROL NEBULIZED 2.5 MG/3 ML INHALATION PRN (15:59)
[2023-02-06] MEDS ORDERED: GABAPENTIN 300 MG CAP PO PRN (16:02)
[2023-02-06] MEDS ORDERED: traZODone HCL 50 MG TAB PO PRN (16:02)
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
[2023-02-06] MEDS: IPRATROPIUM-ALBUTEROL 3 ML NEB INHALATION SCH ×2 (16:37→20:44)
[2023-02-06] MEDS: SODIUM CHLORIDE 0.9% 1,000 ML IV SCH (16:56)
[2023-02-06] MEDS: guaiFENesin 600 MG TABLET.ER PO SCH (17:01)
[2023-02-06] MEDS: BENZONATATE 100 MG CAP PO PRN (17:01)
[2023-02-06] MEDS: IBUPROFEN 600 MG TAB PO PRN (18:43)
[2023-02-06] MEDS: QUEtiapine 100 MG TAB PO SCH (20:43)
[2023-02-06] MEDS: FAMOTIDINE 20 MG TAB PO SCH (20:43)
[2023-02-06] MEDS: METOPROLOL TARTRATE 25 MG TAB PO SCH (20:43)
[2023-02-06] MEDS: DOXAZOSIN 4 MG TAB PO SCH (20:43)
[2023-02-06] MEDS: MELATONIN 5 MG TABLET PO SCH (20:43)
[2023-02-06] MEDS: BUDESONIDE 1 MG/2 ML NEBU INHALATION SCH (20:44)
[2023-02-07] MEDS: BENZONATATE 100 MG CAP PO PRN ×2 (02:14→20:34)
[2023-02-07] MEDS: IBUPROFEN 600 MG TAB PO PRN (02:19)
[2023-02-07] MEDS: SODIUM CHLORIDE 0.9% 1,000 ML IV SCH (06:44)
[2023-02-07] MEDS: LEVOTHYROXINE 75 MCG TAB PO SCH (06:55)
[2023-02-07] MEDS: BUDESONIDE 1 MG/2 ML NEBU INHALATION SCH ×2 (08:51→19:51)
[2023-02-07] MEDS: IPRATROPIUM-ALBUTEROL 3 ML NEB INHALATION SCH ×4 (08:51→19:51)
[2023-02-07] MEDS ORDERED: MELOXICAM 7.5 MG TAB PO SCH (09:00)
[2023-02-07] MEDS ORDERED: ENOXAPARIN 40 MG/0.4 ML SYRINGE SQ SCH (09:00)
[2023-02-07] MEDS ORDERED: VALSARTAN 80 MG TAB PO SCH (09:00)
[2023-02-07] MEDS: ATORVASTATIN 10 MG TAB PO SCH (09:01)
[2023-02-07] MEDS: guaiFENesin 600 MG TABLET.ER PO SCH ×2 (09:01→20:34)
[2023-02-07] MEDS: METOPROLOL TARTRATE 25 MG TAB PO SCH ×2 (09:01→20:34)
[2023-02-07] MEDS: AZITHROMYCIN 500 MG TAB PO SCH (09:01)
[2023-02-07] MEDS: predniSONE 20 MG TAB PO SCH (09:02)
[2023-02-07] MEDS: ASPIRIN 81 MG PO SCH (09:02)
[2023-02-07] MEDS: allopurinoL 300 MG TAB PO SCH (09:02)
[2023-02-07] MEDS: amLODIPine 2.5 MG TAB PO SCH (09:02)
[2023-02-07 11:14] LABS: HCT 37.2 % (39.6-50.0); HGB 12.1 g/dL (13.0-17.0); MCH 30.7 pg (27.0-32.0); MCHC 32.5 g/dL (32.0-37.0); MCV 94.4 FL (80.0-97.0); Mean Platelet Volume 11.2 FL (9.5-12.2); NRBC Per 100 WBC 0 X 10*3/uL (0.00-0.01); Platelet Count 158 X 10*3/uL (140-440); RBC 3.94 X 10*6/uL (4.40-5.60); RDW 14.5 % (11.5-14.5); WBC 20.49 X 10*3/uL (4.50-10.00)
[2023-02-07 11:21] LABS: BUN/Creat Ratio 17.12 Ratio (12.00-20.00); Blood Urea Nitrogen 44.5 mg/dL (9.0-27.0); Calcium 8.1 mg/dL (8.7-10.3); Carbon Dioxide 14.4 mmol/L (21.6-31.8); Chloride 107 mmol/L (96-109); Glucose 150 mg/dL (70-110); Potassium 5.1 mmol/L (3.5-5.5); Sodium 138 mmol/L (135-145)
[2023-02-07 11:49] LABS: Basophils # (M) 0 X 10*3/uL (0.00-0.10); Neutrophils % (M) 87 %
[2023-02-07 11:51] LABS: Eosinophils # (M) 0.41 X 10*3/uL (0.04-0.35); Lymphocytes # (M) 1.02 X 10*3/uL (0.90-5.00); Metamyelocytes % 4 % (0-0); Monocytes # (M) 0.41 X 10*3/uL (0.20-1.00); Neutrophils # (M) 17.83 X 10*3/uL (1.80-7.70); RBC Morphology Normal (Normal)
[2023-02-07] MEDS ORDERED: DEXTROSE 5% IN WATER 1,000 ML with SODIUM BICARB (1 MEQ/ML) 150 ML IV ONE (13:43)
--- NOTE | 2023-02-07 13:46 | P.PN ---
Subjective Progress Note Date: 02/07/23 Patient is a 77 yo Male with hx of COPD, systolic congestive heart failure with ejection fraction 45-50% and grade 2 diastolic dysfunction, hypertension, dyslipidemia, myocardial infarction, and multiple other comorbid conditions who presented to the hospital due to cough and chest pain. On arrival to the ER he had a fever of 100.5 and was tachycardic with pulse of 124. Laboratory analysis included CBC, CMP, and lactic acid was remarkable for BUN 28, AST 66, ALT 85. Influenza A/B/RSV/COVID-19 testing was negative. Chest X-ray demonstrated fibrotic changes with superimposed right basilar airspace opacities. Rocephin and Zithromax. Arrangements were made for admission. Is also diagnosed with acute exacerbation of COPD and therefore was started on bronchodilators and prednisone. Pulmonary was consulted. The morning after admission he developed significant AKA. Patient seen and examined at bedside. Feeling very tired and fatigued today. He continues to feel short of breath. He feels about the same as yesterday. Vital signs reviewed General: nontoxic, no distress, appears at stated age Cardiovascular: S1S2 reg, no murmur, positive posterior tibial pulse bilateral, Lungs: Coarse breath sounds bilateral, no rhonchi, no rales , no accessory muscle use Abdominal: soft, nontender to palpation, no guarding, no appreciable organomegaly Ext: no gross muscle atrophy, no edema b/l lower extremities, no contractures Neuro: CN II-XI grossly intact, no focal neuro deficits Psych: Alert, oriented, appropriate affect Assessment/Plan: Community acquired PNA with sepsis (fever and HR) Acute exacerbation of COPD - Zithromax 500 mg IV piggyback daily D # 2, Rocephin 2 g IV piggyback daily D # 2 -Sputum culture -IV fluids -Await blood cultures -Prednisone 60 mg oral daily, budesonide 1 mg twice daily DuoNeb's 4 times a da y, albuterol as needed -Guaifenesin 600 mg oral every 12 hours, Tessalon Perles 100 mg 3 times daily as needed-no need for pulmonary consultation - Await further pulm recs - suspect that leukocytosis is reactive to steroids ASHLEY - Likely multifactorial - stop Motrin, Mobic, valsartan - DC NS and start on D5W with bicarb given renal acidosis at 75 cc/hr - check post void and renal US - Repeat Cr in AM adn if increased consult nephrology - avoid other nephrotoxic agents - check UA HTN HLD Chronic systolic CHF with EF 30-35% -Norvasc 2.5 mg daily, Lipitor 10 mg daily, aspirin 81 mg daily, Lopressor 25 mg daily, valsartan 80 mg daily Chronic: Hyperthyroidism L AKA CAD Overactive bladder Wheelchair bound Bipolar d/o Imaging: None Data Review: Labs reviewed from today include CBC and basic metabolic profile which are remarkable for white blood cell count 20.49, hemoglobin 12.1, dioxide 14.4, anion gap 16.6, BUN 44, creatinine 2.6, glucose 150 DVT prophylaxis: Lovenox Anticipated discharge date: 24-[address]: home- [facility] This dictation was prepared using [email or web address] voice recognition software. Though every attempt is made to correct errors during dictation some may still exist. Objective - Vital Signs Vital signs: Vital Signs Temp 97.6 F 02/07/23 08:10 Pulse 84 02/07/23 12:03 Resp 18 02/07/23 09:30 BP 92/66 02/07/23 08:10 Pulse Ox 95 02/07/23 09:30 FiO2 Intake & Output 02/06/23 02/07/23 02/07/23 18:59 06:59 18:59 Output Total 200 Balance -200 Weight 68.039 kg Output: Urine 200 Other: Voiding Method Urinal # Voids 1 # Bowel Movements 1 - Labs CBC & Chem 7: 02/07/23 07:55 02/07/23 07:55 Labs: Abnormal Lab Results - Last 24 Hours (Table) 02/06/23 02/07/23 02/07/23 Range/Units 10:17 07:55 07:55 WBC 20.49 H (4.50-10.00) X 10*3/uL RBC 3.94 L (4.40-5.60) X 10*6/uL Hgb 12.1 L (13.0-17.0) g/dL Hct 37.2 L (39.6-50.0) % Eosinophils # (Manual) 0.41 H (0.04-0.35) X 10*3/uL Carbon Dioxide 14.4 L (21.6-31.8) mmol/L Anion Gap 16.60 H (4.00-12.00) mmol/L BUN 44.5 H (9.0-27.0) mg/dL Creatinine 2.6 H (0.6-1.5) mg/dL Est GFR (CKD-EPI) 25 L (>=60) Glucose 150 H (70-110) mg/dL Calcium 8.1 L (8.7-10.3) mg/dL Procalcitonin 0.86 H (0.02-0.09) ng/mL
[2023-02-07 15:45] LABS: Appearance,Urine Cloudy (Clear); Bacteria,Urine Rare /hpf; Bilirubin,Urine Negative (Negative); Blood,Urine Negative (Negative); Color,Urine Yellow; Glucose,Urine (UA) Negative (Negative); Ketones,Urine Negative (Negative); Leukocyte Esterase,Urine Large (Negative); Mucus,Urine Rare /hpf; Nitrite,Urine Negative (Negative); PH, Urine 5.5 (5.0-8.0); Protein,Urine 1+ (Negative); RBC,Urine 4 /hpf (0-5); Specific Gravity,Urine 1.019 (1.001-1.035); Squamous Epithelial Cell,Urine <1 /hpf (0-4); Urobilinogen,Urine <2.0 mg/dL (<2.0); WBC,Urine 138 /hpf (0-5)
--- NOTE | 2023-02-07 17:11 | US ---
EXAMINATION TYPE: US renals and bladder DATE OF EXAM: 02/07/2023 COMPARISON: 03/23/2022. CLINICAL INDICATION: Male, 77 years old with history of ASHLEY; Abnormal labs. Portable ultrasound exam EXAM MEASUREMENTS: Right Kidney: 9.7 x 4.2 x 4.2 cm Left Kidney: 10.0 x 5.3 x 5.0 cm Right Kidney: Lateral mid anechoic lesion seen = 1.9 x 2.0 x 2.0 cm Left Kidney: No hydronephrosis or masses seen Bladder: distended, anechoic, bladder diverticula seen. Posterior inferior wall thickening = 0.5 cm Bilateral Jets not seen Incidental finding: spleen = 13.8 cm There is no evidence for hydronephrosis at this point in time. No nephrolithiasis is seen. No karthik s are identified. The urinary bladder is anechoic. IMPRESSION: 1. No hydronephrosis. No renal calculi. 2. Right renal cyst. 3. Bladder diverticula. 4. Borderline splenomegaly.
[2023-02-07] MEDS: QUEtiapine 100 MG TAB PO SCH (20:34)
[2023-02-07] MEDS: DOXAZOSIN 4 MG TAB PO SCH (20:34)
[2023-02-07] MEDS: FAMOTIDINE 20 MG TAB PO SCH (20:34)
[2023-02-07] MEDS: MELATONIN 5 MG TABLET PO SCH (20:34)
[2023-02-08] MEDS: LEVOTHYROXINE 75 MCG TAB PO SCH (06:45)
[2023-02-08] MEDS: predniSONE 20 MG TAB PO SCH (08:53)
[2023-02-08] MEDS: guaiFENesin 600 MG TABLET.ER PO SCH ×2 (08:58→20:28)
[2023-02-08] MEDS: allopurinoL 300 MG TAB PO SCH (08:58)
[2023-02-08] MEDS: IPRATROPIUM-ALBUTEROL 3 ML NEB INHALATION SCH ×4 (08:58→18:45)
[2023-02-08] MEDS: BUDESONIDE 1 MG/2 ML NEBU INHALATION SCH ×2 (08:58→18:46)
[2023-02-08] MEDS: METOPROLOL TARTRATE 25 MG TAB PO SCH ×2 (08:58→20:28)
[2023-02-08] MEDS: ENOXAPARIN 30 MG/0.3 ML SYRINGE SQ SCH (08:59)
[2023-02-08] MEDS: ASPIRIN 81 MG PO SCH (08:59)
[2023-02-08] MEDS: ATORVASTATIN 10 MG TAB PO SCH (08:59)
[2023-02-08] MEDS: AZITHROMYCIN 500 MG TAB PO SCH (08:59)
[2023-02-08] MEDS: amLODIPine 2.5 MG TAB PO SCH (08:59)
[2023-02-08 09:30] LABS: HCT 35.5 % (39.0-53.0); MCH 31.9 pg (25.0-35.0); MCHC 33.7 g/dL (31.0-37.0); MCV 94.5 fL (80.0-100.0); Mean Platelet Volume 9.4; Platelet Count 158 k/uL (150-450); RBC 3.76 m/uL (4.30-5.90); RDW 14.2 % (11.5-15.5); WBC 17.1 k/uL (3.8-10.6)
[2023-02-08 09:51] LABS: ALT 46 U/L (4-49); AST 31 U/L (17-59); African American GFR (CKD) 34 (>60 ml/min/1.73 sqM); Albumin 3.8 g/dL (3.5-5.0); Albumin/Globulin Ratio 1.4; Alkaline Phosphatase 74 U/L (38-126); Anion Gap 17 mmol/L; Blood Urea Nitrogen 64 mg/dL (9-20); Carbon Dioxide 15 mmol/L (22-30); Chloride 107 mmol/L (98-107); Globulin 2.7 g/dL; Glucose 182 mg/dL (74-99); Non-African American GFR(CKD) 29 (>60 ml/min/1.73 sqM); Potassium 4.5 mmol/L (3.5-5.1); Sodium 139 mmol/L (137-145); Total Bilirubin 0.4 mg/dL (0.2-1.3); Total Protein 6.5 g/dL (6.3-8.2)
--- NOTE | 2023-02-08 16:33 | P.PN ---
Subjective Progress Note Date: 02/08/23 No new complaints today, ongoing cough. Cr improving, but still elevated at 2.1 Gen: awake, alert HEENT: normocephalic, atraumatic, good hearing acuity, moist mucous membranes Resp: good air exchange, breathing comfortably with no accessory muscle use, moving air well, end expiratory wheezing CVS: good distal perfusion x 4, GI: soft, NTTP, ND : no SPT, no CVAT, quach catheter not present MSK: no pitting edema, no clubbing Neuro: non-focal, moving all extremities Psych: cooperative, euthymic mood Hospital course: Patient is a 77 yo Male with hx of COPD, systolic congestive heart failure with ejection fraction 45-50% and grade 2 diastolic dysfunction, hypertension, dyslipidemia, myocardial infarction, and multiple other comorbid conditions who presented to the hospital due to cough and chest pain. On arrival to the ER he had a fever of 100.5 and was tachycardic with pulse of 124. Laboratory analysis included CBC, CMP, and lactic acid was remarkable for BUN 28, AST 66, ALT 85. Influenza A/B/RSV/COVID-19 testing was negative. Chest X-ray demonstrated fibrotic changes with superimposed right basilar airspace opacities. Rocephin and Zithromax. Arrangements were made for admission. Is also diagnosed with acute exacerbation of COPD and therefore was started on bronchodilators and prednisone. Pulmonary was consulted. The morning after admission he developed significant ASHLEY. Assessment/Plan: Community acquired PNA with sepsis (fever and HR) Acute exacerbation of COPD - Zithromax 500 mg IV piggyback daily D # 3, Rocephin 2 g IV piggyback daily D # 3 -Sputum culture -IV fluids -Await blood cultures -Prednisone 60 mg oral daily, budesonide 1 mg twice daily DuoNeb's 4 times a day, albuterol as needed -Guaifenesin 600 mg oral every 12 hours, Tessalon Perles 100 mg 3 times daily as needed-no need for pulmonary consultation - Await further pulm recs - suspect that leukocytosis is reactive to steroids ASHLEY - Likely multifactorial - stop Motrin, Mobic, valsartan - DC NS and start on D5W with bicarb given renal acidosis at 75 cc/hr - check post void and renal US - avoid other nephrotoxic agents - check UA HTN HLD Chronic systolic CHF with EF 30-35% -Norvasc 2.5 mg daily, Lipitor 10 mg daily, aspirin 81 mg daily, Lopressor 25 mg daily, valsartan 80 mg daily Chronic: Hyperthyroidism L AKA CAD Overactive bladder Wheelchair bound Bipolar d/o Imaging: None Data Review: CBC: White blood cell count 17.1, hemoglobin 12 Patient metabolic panel: CO2 15, BUN 64, creatinine 2.1 Procalcitonin: 0.86 DVT prophylaxis: Lovenox Anticipated discharge date: 24-[address]: home- [facility] This dictation was prepared using [email or web address] voice recognition software. Though every attempt is made to correct errors during dictation some may still exist. Objective - Vital Signs Vital signs: Vital Signs Temp 97.9 F 02/08/23 14:35 Pulse 77 02/08/23 14:35 Resp 20 02/08/23 14:35 BP 124/74 02/08/23 14:35 Pulse Ox 96 02/08/23 14:35 FiO2 Intake & Output 02/07/23 02/08/23 02/08/23 18:59 06:59 18:59 Intake Total 1375 Output Total 600 100 Balance 775 -100 Intake: Intake, IV Titration 775 Amount Dextrose 5% in Water 1, 375 000 ml @ 75 mls/hr IV . [id number] ONE with Sodium Bicarb (1 Meq/ml) 150 ml Rx#:[id number] Sodium Chloride 0.9% 1, 400 000 ml @ 75 mls/hr IV . [id number] [facility] Rx#:[id number] Oral 600 Output: Urine 600 100 Other: # Bowel Movements 0 1 - Labs CBC & Chem 7: 02/08/23 08:02 02/08/23 08:02 Labs: Abnormal Lab Results - Last 24 Hours (Table) 02/07/23 02/08/23 02/08/23 Range/Units 07:55 08:02 08:02 WBC 17.1 H (3.8-10.6) k/uL RBC 3.76 L (4.30-5.90) m/uL Hgb 12.0 L D (13.0-17.5) gm/dL Hct 35.5 L (39.0-53.0) % Neutrophils # (Manual) 17.83 H (1.80-7.70) X 10*3/uL Carbon Dioxide 15 L (22-30) mmol/L BUN 64 H (9-20) mg/dL Creatinine 2.13 H (0.66-1.25) mg/dL Glucose 182 H (74-99) mg/dL Calcium 8.0 L (8.4-10.2) mg/dL Microbiology - Last 24 Hours (Table) 02/06/23 12:10 Blood Culture - Preliminary Blood 02/06/23 12:25 Blood Culture - Preliminary Blood
[2023-02-08] MEDS: QUEtiapine 100 MG TAB PO SCH (20:28)
[2023-02-08] MEDS: FAMOTIDINE 20 MG TAB PO SCH (20:28)
[2023-02-08] MEDS: DOXAZOSIN 4 MG TAB PO SCH (20:28)
[2023-02-08] MEDS: MELATONIN 5 MG TABLET PO SCH (20:28)
[2023-02-09] MEDS: LEVOTHYROXINE 75 MCG TAB PO SCH (05:28)
[2023-02-09] MEDS: allopurinoL 300 MG TAB PO SCH (08:20)
[2023-02-09] MEDS: METOPROLOL TARTRATE 25 MG TAB PO SCH ×2 (08:20→22:32)
[2023-02-09] MEDS: ASPIRIN 81 MG PO SCH (08:20)
[2023-02-09] MEDS: guaiFENesin 600 MG TABLET.ER PO SCH ×2 (08:20→22:32)
[2023-02-09] MEDS: predniSONE 20 MG TAB PO SCH (08:20)
[2023-02-09] MEDS: amLODIPine 2.5 MG TAB PO SCH (08:20)
[2023-02-09] MEDS: ENOXAPARIN 30 MG/0.3 ML SYRINGE SQ SCH (08:20)
[2023-02-09] MEDS: ATORVASTATIN 10 MG TAB PO SCH (08:21)
[2023-02-09] MEDS: IPRATROPIUM-ALBUTEROL 3 ML NEB INHALATION SCH ×4 (08:48→20:11)
[2023-02-09] MEDS: BUDESONIDE 1 MG/2 ML NEBU INHALATION SCH ×2 (08:48→20:11)
--- NOTE | 2023-02-09 15:34 | P.PN ---
Subjective Progress Note Date: 02/09/23 No new complaints today, ongoing cough. Labs pending today Gen: awake, alert HEENT: normocephalic, atraumatic, good hearing acuity, moist mucous membranes Resp: good air exchange, breathing comfortably with no accessory muscle use, moving air well, end expiratory wheezing CVS: good distal perfusion x 4, GI: soft, NTTP, ND : no SPT, no CVAT, quach catheter not present MSK: no pitting edema, no clubbing Neuro: non-focal, moving all extremities Psych: cooperative, euthymic mood Hospital course: Patient is a 77 yo Male with hx of COPD, systolic congestive heart failure with ejection fraction 45-50% and grade 2 diastolic dysfunction, hypertension, dyslipidemia, myocardial infarction, and multiple other comorbid conditions who presented to the hospital due to cough and chest pain. On arrival to the ER he had a fever of 100.5 and was tachycardic with pulse of 124. Laboratory analysis included CBC, CMP, and lactic acid was remarkable for BUN 28, AST 66, ALT 85. Influenza A/B/RSV/COVID-19 testing was negative. Chest X-ray demonstrated fibrotic changes with superimposed right basilar airspace opacities. Rocephin and Zithromax. Arrangements were made for admission. Is also diagnosed with acute exacerbation of COPD and therefore was started on bronchodilators and prednisone. Pulmonary was consulted. The morning after admission he developed significant ASHLEY. Assessment/Plan: Community acquired PNA with sepsis (fever and HR) Acute exacerbation of COPD - Zithromax 500 mg IV piggyback daily D # 3, Rocephin 2 g IV piggyback daily D # 3 -Sputum culture -IV fluids -Await blood cultures -Prednisone 60 mg oral daily, budesonide 1 mg twice daily DuoNeb's 4 times a day, albuterol as needed -Guaifenesin 600 mg oral every 12 hours, Tessalon Perles 100 mg 3 times daily as needed-no need for pulmonary consultation - Await further pulm recs - suspect that leukocytosis is reactive to steroids ASHLEY - Likely multifactorial - stop Motrin, Mobic, valsartan - DC NS and start on D5W with bicarb given renal acidosis at 75 cc/hr - check post void and renal US - avoid other nephrotoxic agents - check UA HTN HLD Chronic systolic CHF with EF 30-35% -Norvasc 2.5 mg daily, Lipitor 10 mg daily, aspirin 81 mg daily, Lopressor 25 mg daily, valsartan 80 mg daily Chronic: Hyperthyroidism L AKA CAD Overactive bladder Wheelchair bound Bipolar d/o Imaging: None Data Review: CBC: White blood cell count 17.1, hemoglobin 12 Patient metabolic panel: CO2 15, BUN 64, creatinine 2.1 Procalcitonin: 0.86 DVT prophylaxis: Lovenox Anticipated discharge date: 24-[address]: home- [place] This dictation was prepared using [employer] voice recognition software. Though every attempt is made to correct errors during dictation some may still exist. Objective - Vital Signs Vital signs: Vital Signs Temp 97.7 F 02/09/23 12:57 Pulse 77 02/09/23 12:57 Resp 16 02/09/23 12:57 BP 147/84 02/09/23 12:57 Pulse Ox 96 02/09/23 12:57 FiO2 Intake & Output 02/08/23 02/09/23 02/09/23 18:59 06:59 18:59 Intake Total 240 480 Output Total 100 401 400 Balance -100 -161 80 Intake: Oral 240 480 Output: Urine 100 400 400 Urine/Stool Mix 1 Other: Voiding Method Urinal Urinal # Voids 2 1 # Bowel Movements 1 1 - Labs CBC & Chem 7: 02/08/23 08:02 02/08/23 08:02 Labs: Microbiology - Last 24 Hours (Table) 02/07/23 15:26 Urine Culture - Final Urine,Voided 02/06/23 12:10 Blood Culture - Preliminary Blood 02/06/23 12:25 Blood Culture - Preliminary Blood
[2023-02-09 16:20] LABS: HCT 35.3 % (39.6-50.0); HGB 11.4 g/dL (13.0-17.0); MCH 31.4 pg (27.0-32.0); MCHC 32.3 g/dL (32.0-37.0); MCV 97.2 FL (80.0-97.0); Mean Platelet Volume 12.1 FL (9.5-12.2); NRBC Per 100 WBC 0.02 X 10*3/uL (0.00-0.01); Platelet Count 198 X 10*3/uL (140-440); RBC 3.63 X 10*6/uL (4.40-5.60); RDW 14.4 % (11.5-14.5)
[2023-02-09 16:41] LABS: Blood Urea Nitrogen 64.4 mg/dL (9.0-27.0); Calcium 8.3 mg/dL (8.7-10.3); Carbon Dioxide 16.5 mmol/L (21.6-31.8); Chloride 105 mmol/L (96-109); Glucose 216 mg/dL (70-110); Magnesium 2.2 mg/dL (1.5-2.4); Potassium 4.5 mmol/L (3.5-5.5); Sodium 139 mmol/L (135-145)
[2023-02-09 16:56] LABS: Basophils # (M) 0 X 10*3/uL (0.00-0.10); Eosinophils # (M) 0 X 10*3/uL (0.04-0.35); Lymphocytes # (M) 1.66 X 10*3/uL (0.90-5.00); Monocytes # (M) 0.74 X 10*3/uL (0.20-1.00); Neutrophils % (M) 87 %; Nucleated Red Blood Cells 1 /100 WBCS
[2023-02-09] MEDS: FAMOTIDINE 20 MG TAB PO SCH (22:32)
[2023-02-09] MEDS: QUEtiapine 100 MG TAB PO SCH (22:32)
[2023-02-09] MEDS: MELATONIN 5 MG TABLET PO SCH (22:32)
[2023-02-09] MEDS: DOXAZOSIN 4 MG TAB PO SCH (22:32)
[2023-02-10] MEDS: LEVOTHYROXINE 75 MCG TAB PO SCH (06:22)
[2023-02-10 08:02] VITALS: BP 138/86; RESP 20; TEMP 97.8
[2023-02-10] MEDS: METOPROLOL TARTRATE 25 MG TAB PO SCH (08:37)
[2023-02-10] MEDS: predniSONE 20 MG TAB PO SCH (08:37)
[2023-02-10] MEDS: ASPIRIN 81 MG PO SCH (08:37)
[2023-02-10] MEDS: allopurinoL 300 MG TAB PO SCH (08:37)
[2023-02-10] MEDS: guaiFENesin 600 MG TABLET.ER PO SCH (08:37)
[2023-02-10] MEDS: ATORVASTATIN 10 MG TAB PO SCH (08:37)
[2023-02-10] MEDS: amLODIPine 2.5 MG TAB PO SCH (08:37)
[2023-02-10] MEDS: ENOXAPARIN 30 MG/0.3 ML SYRINGE SQ SCH (08:39)
[2023-02-10] MEDS: BUDESONIDE 1 MG/2 ML NEBU INHALATION SCH (08:46)
[2023-02-10] MEDS: IPRATROPIUM-ALBUTEROL 3 ML NEB INHALATION SCH (08:46)
[2023-02-10 08:50] VITALS: PULSE 81
[2023-02-10 09:32] LABS: Basophils # (A) 0.16 X 10*3/uL (0.00-0.10); Basophils % (A) 0.8 %; Eosinophils # (A) 0.01 X 10*3/uL (0.04-0.35); Eosinophils % (A) 0.1 %; HCT 35.4 % (39.6-50.0); HGB 11.5 g/dL (13.0-17.0); Lymphocytes # (A) 1.92 X 10*3/uL (0.90-5.00); Lymphocytes % (A) 9.6 %; MCH 30.8 pg (27.0-32.0); MCHC 32.5 g/dL (32.0-37.0); MCV 94.9 FL (80.0-97.0); Mean Platelet Volume 11.1 FL (9.5-12.2); Monocytes # (A) 0.97 X 10*3/uL (0.20-1.00); Monocytes % (A) 4.9 %; NRBC Per 100 WBC 0.02 X 10*3/uL (0.00-0.01); Neutrophils # (A) 16.03 X 10*3/uL (1.80-7.70); Platelet Count 202 X 10*3/uL (140-440); RBC 3.73 X 10*6/uL (4.40-5.60); RDW 13.8 % (11.5-14.5)
[2023-02-10 09:41] LABS: BUN/Creat Ratio 35.71 Ratio (12.00-20.00); Calcium 8.5 mg/dL (8.7-10.3); Carbon Dioxide 19.2 mmol/L (21.6-31.8); Chloride 107 mmol/L (96-109); Glucose 226 mg/dL (70-110); Magnesium 2.5 mg/dL (1.5-2.4); Potassium 4.8 mmol/L (3.5-5.5); Sodium 139 mmol/L (135-145)
--- NOTE | 2023-02-10 12:40 | P.DS ---
Providers Date of admission: 02/06/23 12:16 Expected date of discharge: 02/10/23 Attending physician: Cristina Hartley DO Primary care physician: Wilder Davila MD Hospital Course: Community acquired PNA with sepsis (fever and HR) Acute exacerbation of COPD ASHLEY HTN HLD Chronic systolic CHF with EF 30-35% Hyperthyroidism L AKA CAD Overactive bladder Wheelchair bound Bipolar d/o Gen: awake, alert HEENT: normocephalic, atraumatic, good hearing acuity, moist mucous membranes Resp: good air exchange, breathing comfortably with no accessory muscle use, moving air well, end expiratory wheezing CVS: good distal perfusion x 4, GI: soft, NTTP, ND : no SPT, no CVAT, quach catheter not present MSK: no pitting edema, no clubbing Neuro: non-focal, moving all extremities Psych: cooperative, euthymic mood Hospital course: Patient is a 77 yo Male with hx of COPD, systolic congestive heart failure with ejection fraction 45-50% and grade 2 diastolic dysfunction, hypertension, dyslipidemia, myocardial infarction, and multiple other comorbid conditions who presented to the hospital due to cough and chest pain. On arrival to the ER he had a fever of 100.5 and was tachycardic with pulse of 124. Laboratory analysis included CBC, CMP, and lactic acid was remarkable for BUN 28, AST 66, ALT 85. Influenza A/B/RSV/COVID-19 testing was negative. Chest X-ray demonstrated fibrotic changes with superimposed right basilar airspace opacities. Rocephin and Zithromax. Arrangements were made for admission. Is also diagnosed with acute exacerbation of COPD and therefore was started on bronchodilators and prednisone. Pulmonary was consulted. The morning after admission he developed significant ASHLEY. Pts mobic, valsartan, and motrin were discontinued, and patient's ASHLEY improved. Renal US was done for evaluation and it showed no evidence of hydronephrosis or renal calculi. Pt was discharged home with 3 additional days of abx to complete 7 day course for pneumonia, and a prednisone taper to complete course for COPD. Pt will f/u with PCP. I spent 35 minutes coordinating this discharge on 02/10 Patient Condition at Discharge: Good Plan - Discharge Summary New Discharge Prescriptions: New predniSONE [Deltasone] See Rx Instructions .ROUTE .COMPLEX #15 tab Cefdinir [Omnicef] 300 mg PO Q12HR 3 Days #6 capsule Continue QUEtiapine [SEROquel] 100 mg PO HS allopurinoL [Zyloprim] 300 mg PO DAILY Ipratropium-Albuterol Nebulize [Duoneb 0.5 mg-3 mg/3 ml Soln] 3 ml INHALATION RT-Q6H PRN PRN Reason: Shortness Of Breath Or Wheezing Doxazosin [Cardura] 4 mg PO HS Atorvastatin [Lipitor] 10 mg PO DAILY Gabapentin 300 mg PO HS PRN PRN Reason: phantom limb pain Levothyroxine Sodium [Synthroid] 150 mcg PO DAILY Melatonin 5 mg PO HS traZODone HCL [Desyrel] 25 mg PO BID PRN PRN Reason: sleep Aspirin [[place] Aspirin EC] 81 mg PO DAILY Metoprolol Tartrate [Lopressor] 25 mg PO BID #60 tab Nitroglycerin Sl Tabs [Nitrostat] 0.4 mg SUBLINGUAL Q5M PRN #120 tab PRN Reason: Chest Pain amLODIPine [Norvasc] 2.5 mg PO DAILY Budesonide [Pulmicort] 1 mg INHALATION RT-BID Ergocalciferol [Vitamin D2 (1250 Mcg = 59335 Iu)] 1,250 mcg PO Q7D Discontinued Ibuprofen 600 mg PO Q8H PRN PRN Reason: arthritis pain Meloxicam [Mobic] 7.5 mg PO DAILY Valsartan [Diovan] 80 mg PO DAILY Discharge Medication List QUEtiapine [SEROquel] 100 mg PO HS 12/02/13 [History] allopurinoL [Zyloprim] 300 mg PO DAILY 04/07/19 [History] Aspirin [[place] Aspirin EC] 81 mg PO DAILY 03/23/22 [History] Doxazosin [Cardura] 4 mg PO HS 03/23/22 [History] Ipratropium-Albuterol Nebulize [Duoneb 0.5 mg-3 mg/3 ml Soln] 3 ml INHALATION R T-Q6H PRN 03/23/22 [History] Metoprolol Tartrate [Lopressor] 25 mg PO BID #60 tab 03/24/22 [Rx] Nitroglycerin Sl Tabs [Nitrostat] 0.4 mg SUBLINGUAL Q5M PRN #120 tab 03/24/22 [Rx] Atorvastatin [Lipitor] 10 mg PO DAILY 02/06/23 [History] Budesonide [Pulmicort] 1 mg INHALATION RT-BID 02/06/23 [History] Ergocalciferol [Vitamin D2 (1250 Mcg = 29795 Iu)] 1,250 mcg PO Q7D 02/06/23 [History] Gabapentin 300 mg PO HS PRN 02/06/23 [History] Levothyroxine Sodium [Synthroid] 150 mcg PO DAILY 02/06/23 [History] Melatonin 5 mg PO HS 02/06/23 [History] amLODIPine [Norvasc] 2.5 mg PO DAILY 02/06/23 [History] traZODone HCL [Desyrel] 25 mg PO BID PRN 02/06/23 [History] Cefdinir [Omnicef] 300 mg PO Q12HR 3 Days #6 capsule 02/10/23 [Rx] predniSONE [Deltasone] See Rx Instructions .ROUTE .COMPLEX #15 tab 02/10/23 [Rx] Follow up Appointment(s)/Referral(s): Wilder Davila MD [Primary Care Provider] - 1-2 days Patient Instructions/Handouts: Prednisone (By mouth), Cefdinir (By mouth), Pneumonia (DC) Activity/Diet/Wound Care/Special Instructions: nurse to call mayur KERR for transportation Discharge Disposition: HOME WITH HOME HEALTH SERVICES
== END 2023-02-10 11:05 | disposition home health service (06) | DRG 871 ==
LOC: EC 09:35 → 4SSUR 12:16 → 5NMEDONC 02-08 15:17
PROVIDERS: ADMIT Internal Medicine; ATTEND Internal Medicine
DX: A41.9 Sepsis, unspecified organism (principal); J18.9 Pneumonia, unspecified organism; J96.01 Acute respiratory failure with hypoxia; I50.22 Chronic systolic (congestive) heart failure; J44.1 Chronic obstructive pulmonary disease with (acute) exacerbation; N17.9 Acute kidney failure, unspecified; J44.0 Chronic obstructive pulmonary disease with (acute) lower respiratory infection; I11.0 Hypertensive heart disease with heart failure; F41.9 Anxiety disorder, unspecified; Z11.52 Encounter for screening for COVID-19; E03.9 Hypothyroidism, unspecified; Z79.890 Hormone replacement therapy; H54.61 Unqualified visual loss, right eye, normal vision left eye; F17.210 Nicotine dependence, cigarettes, uncomplicated; I25.10 Atherosclerotic heart disease of native coronary artery without angina pectoris; F31.9 Bipolar disorder, unspecified; E78.5 Hyperlipidemia, unspecified; E05.90 Thyrotoxicosis, unspecified without thyrotoxic crisis or storm; I25.2 Old myocardial infarction; N32.81 Overactive bladder; Z79.1 Long term (current) use of non-steroidal anti-inflammatories (NSAID); Z79.899 Other long term (current) drug therapy; Z79.82 Long term (current) use of aspirin; Z95.0 Presence of cardiac pacemaker; Z89.612 Acquired absence of left leg above knee; Z99.3 Dependence on wheelchair; Z80.1 Family history of malignant neoplasm of trachea, bronchus and lung; Z96.651 Presence of right artificial knee joint; M10.9 Gout, unspecified; Z98.42 Cataract extraction status, left eye; Z98.41 Cataract extraction status, right eye
CPT/HCPCS: 36415; 71046; 76770; 80048; 80053; 81001; 83605; 83735; 84145; 85025; 85027; 87040; 87086; 87449; 87636; 94640; 94760; 96361; 96365; 96366; 96367; 96372; 99285

== ENCOUNTER 2023-04-21 22:30 | Emergency (ER) | payer OTHER ==
[2023-04-21 22:49] VITALS: TEMP 98.4
[2023-04-21 23:00] LABS: Basophils # (A) 0.1 k/uL (0-0.2); Basophils % (A) 1 %; Eosinophils # (A) 2.1 k/uL (0-0.7); Eosinophils % (A) 21 %; HCT 43.7 % (39.0-53.0); HGB 14.9 gm/dL (13.0-17.5); Lymphocytes # (A) 2.2 k/uL (1.0-4.8); Lymphocytes % (A) 22 %; MCH 31.3 pg (25.0-35.0); Mean Platelet Volume 7.9; Monocytes # (A) 0.5 k/uL (0-1.0); Monocytes % (A) 5 %; Neutrophils # (A) 5.1 k/uL (1.3-7.7); Neutrophils % (A) 49 %; Platelet Count 185 k/uL (150-450); RBC 4.75 m/uL (4.30-5.90); RDW 14.7 % (11.5-15.5); WBC 10.3 k/uL (3.8-10.6)
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
[2023-04-21 23:08] LABS: Chloride 112 mmol/L (98-107)
[2023-04-21 23:10] LABS: ALT 54 U/L (4-49); AST 52 U/L (17-59); African American GFR (CKD) 72 (>60 ml/min/1.73 sqM); Albumin 4.7 g/dL (3.5-5.0); Alkaline Phosphatase 87 U/L (38-126); Anion Gap 12 mmol/L; Blood Urea Nitrogen 32 mg/dL (9-20); Calcium 9.3 mg/dL (8.4-10.2); Carbon Dioxide 16 mmol/L (22-30); Glucose 125 mg/dL (74-99); Magnesium 1.8 mg/dL (1.6-2.3); Non-African American GFR(CKD) 62 (>60 ml/min/1.73 sqM); Potassium 4.1 mmol/L (3.5-5.1); Sodium 140 mmol/L (137-145); Total Bilirubin 0.8 mg/dL (0.2-1.3); Total Protein 7.3 g/dL (6.3-8.2)
[2023-04-21] MEDS: ALBUTEROL NEBULIZED 2.5 MG/3 ML INHALATION STA (23:31)
[2023-04-21] MEDS: NITROGLYCERIN SL TABS 0.4 MG TAB SUBLINGUAL STA (23:34)
[2023-04-21 23:40] LABS: INR 1.1 (<1.2); Partial Thromboplastin Time 22.1 sec (22.0-30.0); Prothrombin Time 11.7 sec (10.0-12.5)
--- NOTE | 2023-04-22 01:45 | XR ---
EXAM: XR Chest, 1 View CLINICAL HISTORY: ITS.REASON XR Reason: chest pain TECHNIQUE: Frontal view of the chest. COMPARISON: No relevant prior studies available. FINDINGS: Lungs: No consolidation or mass. Pleural space: No acute findings Heart: cardiomegaly. Bones/joints: No acute findings. IMPRESSION: No acute cardiopulmonary process.
[2023-04-22] MEDS: HYDROcodone/APAP 5-325MG 1 EACH TAB PO STA (03:05)
[2023-04-22 04:06] VITALS: BP 168/104; PULSE 77; RESP 20
== END 2023-04-22 04:07 | disposition home or self-care (01) ==
LOC: EC 22:30
DX: R07.1 Chest pain on breathing (principal); Z87.891 Personal history of nicotine dependence; Z95.0 Presence of cardiac pacemaker
CPT/HCPCS: 36415; 71045; 80053; 83735; 84484; 85025; 85610; 85730; 93005; 94640; 99285

== ENCOUNTER 2023-09-07 15:43 | Observation (INO) | payer OTHER ==
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
--- NOTE | 2023-09-07 19:01 | XR ---
EXAMINATION TYPE: XR foot complete 3 views LT DATE OF EXAM: 09/07/2023 Comparison: None Clinical History: 78-year-old male left 5th digit pain Findings: Diffuse soft tissue swelling. Hammertoe deformities. Small plantar heel spur. Degenerative change tib iotalar joint. There is more pronounced soft tissue swelling of the fifth digit. Some possible cortic al loss along the lateral margin of the fifth middle phalanx and base of the distal phalanx. Possible tiny foci of soft tissue air here as well. No displaced fracture. Impression: 1. Diffuse soft tissue swelling possibly representing cellulitis. However, the degree of soft tissue swelling is more pronounced at the fifth toe where tiny foci of air may be present. Correlate to excl ude soft tissue infection with gas-forming organism. 2. In addition, there appears to be some subtle cortical loss at the fifth distal phalangeal base and along the lateral margin of the fifth middle phalanx. Unable to exclude a contiguous osteomyelitis.
[2023-09-07 20:43] LABS: Basophils # (A) 0.1 k/uL (0-0.2); Basophils % (A) 1 %; Eosinophils # (A) 0.8 k/uL (0-0.7); Eosinophils % (A) 8 %; HCT 44.4 % (39.0-53.0); HGB 14.6 gm/dL (13.0-17.5); Lymphocytes # (A) 1.8 k/uL (1.0-4.8); Lymphocytes % (A) 18 %; MCH 29.9 pg (25.0-35.0); MCV 90.8 fL (80.0-100.0); Mean Platelet Volume 7.8; Monocytes # (A) 0.4 k/uL (0-1.0); Monocytes % (A) 4 %; Neutrophils % (A) 69 %; Platelet Count 311 k/uL (150-450); RBC 4.89 m/uL (4.30-5.90); RDW 14.4 % (11.5-15.5); WBC 10.2 k/uL (3.8-10.6)
[2023-09-07 20:48] LABS: ALT 28 U/L (4-49); AST 47 U/L (17-59); African American GFR (CKD) 69 (>60 ml/min/1.73 sqM); Albumin 4.6 g/dL (3.5-5.0); Alkaline Phosphatase 68 U/L (38-126); Anion Gap 11 mmol/L; Blood Urea Nitrogen 23 mg/dL (9-20); Calcium 9.4 mg/dL (8.4-10.2); Carbon Dioxide 16 mmol/L (22-30); Chloride 113 mmol/L (98-107); Glucose 95 mg/dL (74-99); Non-African American GFR(CKD) 60 (>60 ml/min/1.73 sqM); Sodium 140 mmol/L (137-145); Total Bilirubin 1.1 mg/dL (0.2-1.3); Total Protein 7.3 g/dL (6.3-8.2); Uric Acid 9.5 mg/dL (3.5-8.5)
[2023-09-07] MEDS ORDERED: VANCOMYCIN IV PER PHARMACY 1 EACH MISC MISCELLANE PRN (22:26)
[2023-09-07] MEDS ORDERED: ACETAMINOPHEN TAB 325 MG TAB PO PRN (22:27)
[2023-09-07] MEDS ORDERED: IBUPROFEN 400 MG TAB PO PRN (22:27)
[2023-09-07] MEDS ORDERED: NALOXONE 0.4 MG/ML 1 ML VIAL IV PRN (22:27)
[2023-09-07] MEDS: PIPERACILLIN-TAZOBACTAM 3.375 GM in SODIUM CHLORIDE 0.9% 100 ML IVPB SCH (23:04)
[2023-09-08] MEDS: VANCOMYCIN 1,000 MG in SODIUM CHLORIDE 0.9% 250 ML IVPB ONE (01:09)
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
[2023-09-08] MEDS: hydrALAZINE HCL 25 MG TAB PO STA (04:04)
[2023-09-08 06:53] LABS: Basophils # (A) 0.1 k/uL (0-0.2); Basophils % (A) 1 %; Eosinophils # (A) 0.8 k/uL (0-0.7); Eosinophils % (A) 8 %; HCT 42.3 % (39.0-53.0); HGB 13.3 gm/dL (13.0-17.5); Hypochromasia Slight; Lymphocytes # (A) 1.4 k/uL (1.0-4.8); Lymphocytes % (A) 14 %; MCH 29.5 pg (25.0-35.0); MCHC 31.6 g/dL (31.0-37.0); MCV 93.5 fL (80.0-100.0); Mean Platelet Volume 7.8; Monocytes # (A) 0.5 k/uL (0-1.0); Monocytes % (A) 5 %; Neutrophils % (A) 70 %; Platelet Count 275 k/uL (150-450); RBC 4.52 m/uL (4.30-5.90); RDW 14.5 % (11.5-15.5)
[2023-09-08 07:05] LABS: African American GFR (CKD) 72 (>60 ml/min/1.73 sqM); Anion Gap 8 mmol/L; Blood Urea Nitrogen 23 mg/dL (9-20); Calcium 8.9 mg/dL (8.4-10.2); Carbon Dioxide 18 mmol/L (22-30); Chloride 113 mmol/L (98-107); Glucose 109 mg/dL (74-99); Non-African American GFR(CKD) 62 (>60 ml/min/1.73 sqM); Sodium 139 mmol/L (137-145)
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
[2023-09-08] MEDS: ENOXAPARIN 40 MG/0.4 ML SYRINGE SQ SCH (08:37)
[2023-09-08] MEDS ORDERED: IPRATROPIUM-ALBUTEROL 3 ML NEB INHALATION PRN (11:51)
[2023-09-08] MEDS ORDERED: traZODone HCL 50 MG TAB PO PRN (11:51)
[2023-09-08] MEDS ORDERED: FLUTICASONE NASAL 50MCG/SPRAY 16GM BTL EA NOSTRIL PRN (11:51)
[2023-09-08] MEDS ORDERED: ALBUTEROL HFA INHALER INHALATION PRN (11:51)
--- NOTE | 2023-09-08 11:53 | P.PN ---
Subjective Progress Note Date: 09/08/23 Patient has no new complaints today. Continues to report pain in his right fifth toe. Denies fevers, chills. Reports he has an appetite, is stooling well, urinating well. He has been on vancomycin, Zosyn overnight. Infectious disease consult and orthopedic consult are pending. Gen: In NAD, non-toxic HEENT: normocephalic, atraumatic, hearing acuity is intant, mucous membranes moist CVS: perfusing all extremities well, no pitting edema, Respiratory: symmetric chest expansion, no accessory muscle use, GI: soft, NTTP, ND, : no suprapubic tenderness, no CVA tenderness MSK/Derm: Left AKA, right fifth toe with swelling on the dorsal aspect and erythema, abrasion on the lateral aspect, no appreciable draining Neuro: CN II-XII intact, no motor weakness, Psych: cooperative, euthymic mood, judgment and insight is intact Hospital course: Patient is a 78-year-old male with a PMH of systolic and diastolic CHF EF 30-35 %, hyperlipidemia, hypertension, CAD, COPD, status post left above-knee a mputation, wheelchair-bound who presents to the emergency room with complaints of right fifth toe pain. Foot x-ray in the emergency room revealed right fifth toe swelling with tiny foci of air with findings of cellulitis, unable to rule out osteomyelitis. Laboratory evaluation was remarkable for WBC count 10.2, hemoglobin 14.6, sodium 140, potassium 4.0, chloride 113, CO2 16, BUN 23, creatinine 1.18, with uric acid 9.5. Assessment: Right fifth toe cellulitis with abscess, unable to rule out underlying osteomyelitis -Continue broad-spectrum IV antibiotic coverage: vancomycin (09/06-present), zosyn (09/06-09/07), cefepime (09/07-present) -Follow-up wound and blood cultures -Orthopedic surgery and ID consulted -Hold off on IV fluids in setting of significant history of CHF Chronic conditions: Diastolic CHF, hypertension, hyperlipidemia, CAD, COPD -Home medications reviewed and reconciled Plan: Resume home medications once reconciled DVT prophylaxis: Lovenox subcu The patient is admitted with an anticipated greater than 2 midnight stay for evaluation of right toe cellulitis CODE STATUS: Full Code Discussed with: Patient Anticipated discharge place: Home Objective - Vital Signs Vital signs: Vital Signs Temp 98.5 F 09/08/23 07:46 Pulse 94 09/08/23 07:46 Resp 18 09/08/23 07:46 BP 144/90 09/08/23 07:46 Pulse Ox 97 09/08/23 07:46 FiO2 Intake & Output 09/07/23 09/08/23 09/08/23 18:59 06:59 18:59 Intake Total 120 Balance 120 Weight 61.235 kg 61.235 kg Intake: Oral 120 - Labs CBC & Chem 7: 09/08/23 06:17 09/08/23 06:17 Labs: Abnormal Lab Results - Last 24 Hours (Table) 09/07/23 09/07/23 09/08/23 Range/Units 17:08 17:08 06:17 Eosinophils # 0.8 H 0.8 H (0-0.7) k/uL Chloride 113 H (98-107) mmol/L Carbon Dioxide 16 L (22-30) mmol/L BUN 23 H (9-20) mg/dL Glucose (74-99) mg/dL Uric Acid 9.5 H (3.5-8.5) mg/dL 09/08/23 Range/Units 06:17 Eosinophils # (0-0.7) k/uL Chloride 113 H (98-107) mmol/L Carbon Dioxide 18 L (22-30) mmol/L BUN 23 H (9-20) mg/dL Glucose 109 H (74-99) mg/dL Uric Acid (3.5-8.5) mg/dL
[2023-09-08] MEDS: CEFEPIME 1 GM in SODIUM CHLORIDE 0.9% 50 ML IVPB SCH (13:28)
[2023-09-08] MEDS: ATORVASTATIN 20 MG TAB PO SCH (13:29)
[2023-09-08] MEDS: ASPIRIN 81 MG PO SCH (13:29)
[2023-09-08] MEDS: VALSARTAN 80 MG TAB PO SCH (13:29)
[2023-09-08] MEDS: amLODIPine 2.5 MG TAB PO SCH (13:29)
[2023-09-08] MEDS: LEVOTHYROXINE 100 MCG TAB PO SCH (13:29)
[2023-09-08] MEDS: GABAPENTIN 300 MG CAP PO SCH (17:06)
[2023-09-08] MEDS: ACETAMINOPHEN TAB 500 MG TAB PO PRN (20:31)
[2023-09-08] MEDS: traZODone HCL 50 MG TAB PO SCH (20:31)
[2023-09-08] MEDS: MELATONIN 5 MG TABLET PO SCH (20:31)
[2023-09-08] MEDS: METOPROLOL TARTRATE 25 MG TAB PO SCH (20:31)
[2023-09-08] MEDS: QUEtiapine 100 MG TAB PO SCH (20:32)
[2023-09-08] MEDS: DOXAZOSIN 4 MG TAB PO SCH (20:32)
[2023-09-08] MEDS: VANCOMYCIN 1,000 MG in SODIUM CHLORIDE 0.9% 250 ML IVPB SCH (20:33)
[2023-09-09] MEDS: allopurinoL 300 MG TAB PO SCH (08:39)
--- NOTE | 2023-09-09 09:09 | P.PN ---
Subjective Progress Note Date: 09/09/23 Patient has no new complaints today. Patient hit his right toe and had significant pain afterwards. Tentatively the plan is to continue antibiotics with no immediate surgical intervention. Awaiting infectious disease recommendations, consideration of MRI to rule out osteomyelitis. Gen: In NAD, non-toxic HEENT: normocephalic, atraumatic, hearing acuity is intant, mucous membranes moist CVS: perfusing all extremities well, no pitting edema, Respiratory: symmetric chest expansion, no accessory muscle use, GI: soft, NTTP, ND, : no suprapubic tenderness, no CVA tenderness MSK/Derm: Left AKA, right fifth toe with swelling on the dorsal aspect and erythema, abrasion on the lateral aspect, no appreciable draining Neuro: CN II-XII intact, no motor weakness, Psych: cooperative, euthymic mood, judgment and insight is intact Hospital course: Patient is a 78-year-old male with a PMH of systolic and diastolic CHF EF 30-35 %, hyperlipidemia, hypertension, CAD, COPD, status post left above-knee amputation, wheelchair-bound who presents to the emergency room with complaints of right fifth toe pain. Foot x-ray in the emergency room revealed right fifth toe swelling with tiny foci of air with findings of cellulitis, unable to rule out osteomyelitis. Laboratory evaluation was remarkable for WBC count 10.2, hemoglobin 14.6, sodium 140, potassium 4.0, chloride 113, CO2 16, BUN 23, creatinine 1.18, with uric acid 9.5. Assessment: Right fifth toe cellulitis with abscess, unable to rule out underlying osteomyelitis -Continue broad-spectrum IV antibiotic coverage: vancomycin (09/06-present), zosyn (09/06-09/07), cefepime (09/07-present) -Follow-up wound and blood cultures -Orthopedic surgery and ID consulted -Hold off on IV fluids in setting of significant history of CHF Chronic conditions: Diastolic CHF, hypertension, hyperlipidemia, CAD, COPD -Home medications reviewed and reconciled Plan: Resume home medications once reconciled DVT prophylaxis: Lovenox subcu The patient is admitted with an anticipated greater than 2 midnight stay for evaluation of right toe cellulitis CODE STATUS: Full Code Discussed with: Patient Anticipated discharge place: Home Objective - Vital Signs Vital signs: Vital Signs Temp 98 F 09/09/23 07:51 Pulse 50 L 09/09/23 07:51 Resp 17 09/09/23 07:51 BP 114/63 09/09/23 07:51 Pulse Ox 93 L 09/09/23 07:51 FiO2 Intake & Output 09/08/23 09/09/23 09/09/23 18:59 06:59 18:59 Intake Total 1350 Output Total 750 225 300 Balance 600 -225 -300 Intake: Intake, IV Titration 150 Amount Cefepime 1 gm In Sodium 50 Chloride 0.9% 50 ml @ 12. 5 mls/hr IVPB Q[facility]H [facility] Rx# :[id number] Piperacillin-Tazobactam 3 100 .375 gm In Sodium Chloride 0.9% 100 ml @ 25 mls/hr IVPB Q8H [facility] Rx#: [id number] Oral 1200 Output: Urine 750 225 300 Other: Voiding Method Urinal Urinal - Labs CBC & Chem 7: 09/08/23 06:17 09/08/23 06:17 Labs: Abnormal Lab Results - Last 24 Hours (Table) 09/08/23 Range/Units 06:17 C-Reactive Protein 3.3 H (<1.0) mg/dL Microbiology - Last 24 Hours (Table) 09/07/23 22:25 Gram Stain - Preliminary Foot - Right Wound Culture - Preliminary 09/07/23 21:30 Blood Culture - Preliminary Blood
[2023-09-09 09:36] LABS: Basophils # (A) 0.07 X 10*3/uL (0.00-0.10); Basophils % (A) 0.9 %; Eosinophils # (A) 0.75 X 10*3/uL (0.04-0.35); Eosinophils % (A) 9.2 %; HGB 11.8 g/dL (13.0-17.0); Lymphocytes # (A) 1.67 X 10*3/uL (0.90-5.00); Lymphocytes % (A) 20.6 %; MCH 30.3 pg (27.0-32.0); MCHC 32.8 g/dL (32.0-37.0); MCV 92.3 FL (80.0-97.0); Mean Platelet Volume 10.6 FL (9.5-12.2); Monocytes # (A) 0.48 X 10*3/uL (0.20-1.00); Monocytes % (A) 5.9 %; NRBC Per 100 WBC 0 X 10*3/uL (0.00-0.01); Neutrophils % (A) 62.9 %; Platelet Count 241 X 10*3/uL (140-440); RDW 14.4 % (11.5-14.5); WBC 8.11 X 10*3/uL (4.50-10.00)
[2023-09-09 11:34] LABS: Erythrocyte Sedimentation Rate 14 mm/Hr (0-20)
[2023-09-09 12:04] LABS: BUN/Creat Ratio 18.83 Ratio (12.00-20.00); Blood Urea Nitrogen 22.6 mg/dL (9.0-27.0); Calcium 8.4 mg/dL (8.7-10.3); Carbon Dioxide 17.2 mmol/L (21.6-31.8); Chloride 110 mmol/L (96-109); Glucose 125 mg/dL (70-110); Potassium 3.9 mmol/L (3.5-5.5); Sodium 139 mmol/L (135-145)
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
[2023-09-09] MEDS: CEFEPIME 2 GM in SODIUM CHLORIDE 0.9% 100 ML IVPB SCH ×2 (15:00→21:14)
[2023-09-09 19:25] VITALS: RESP 16
[2023-09-10] MEDS ORDERED: VANCOMYCIN 1,000 MG VIAL ONE (00:01)
[2023-09-10] MEDS ORDERED: VALSARTAN 80 MG TAB ONE (00:01)
[2023-09-10] MEDS ORDERED: QUEtiapine 100 MG TAB ONE (00:01)
[2023-09-10] MEDS ORDERED: amLODIPine 2.5 MG TAB ONE (00:01)
[2023-09-10] MEDS ORDERED: CEFEPIME 1 GM VIAL ONE (00:01)
[2023-09-10] MEDS ORDERED: FLUTICASONE NASAL 50MCG/SPRAY 16GM BTL ONE (00:01)
[2023-09-10] MEDS ORDERED: SODIUM CHLORIDE 0.9% 250 ML BAG ONE (00:01)
[2023-09-10] MEDS ORDERED: DOXAZOSIN 4 MG TAB ONE (00:01)
[2023-09-10] MEDS ORDERED: LEVOTHYROXINE 100 MCG TAB ONE (00:01)
[2023-09-10] MEDS ORDERED: SODIUM CHLORIDE 0.9% 50 ML BAG ONE (00:01)
[2023-09-10 07:09] LABS: African American GFR (CKD) 74 (>60 ml/min/1.73 sqM); Anion Gap 7 mmol/L; Blood Urea Nitrogen 23 mg/dL (9-20); Calcium 8.7 mg/dL (8.4-10.2); Carbon Dioxide 18 mmol/L (22-30); Chloride 114 mmol/L (98-107); Glucose 101 mg/dL (74-99); Magnesium 2.1 mg/dL (1.6-2.3); Non-African American GFR(CKD) 64 (>60 ml/min/1.73 sqM); Potassium 4.2 mmol/L (3.5-5.1); Sodium 139 mmol/L (137-145)
[2023-09-10 07:35] VITALS: BP 122/76; PULSE 55; TEMP 97.4
[2023-09-10] MEDS ORDERED: ATORVASTATIN 20 MG TAB ONE (09:15)
[2023-09-10] MEDS ORDERED: METOPROLOL TARTRATE 25 MG TAB ONE ×2 (09:15→20:28)
[2023-09-10] MEDS ORDERED: ASPIRIN 81 MG ONE (09:15)
[2023-09-10] MEDS ORDERED: ENOXAPARIN 40 MG/0.4 ML SYRINGE SQ ONE (09:16)
[2023-09-10] MEDS ORDERED: allopurinoL 300 MG TAB PO ONE (09:16)
[2023-09-10] MEDS ORDERED: GABAPENTIN 300 MG CAP ONE ×2 (09:16→20:29)
[2023-09-10] MEDS ORDERED: MELATONIN 5 MG TABLET ONE (20:29)
[2023-09-10] MEDS ORDERED: traZODone HCL 50 MG TAB ONE (20:29)
[2023-09-10] MEDS ORDERED: ACETAMINOPHEN TAB 500 MG TAB ONE (20:30)
[2023-09-11] MEDS ORDERED: QUEtiapine 100 MG TAB ONE (00:01)
[2023-09-11] MEDS ORDERED: CEFEPIME 1 GM VIAL ONE (00:01)
[2023-09-11] MEDS ORDERED: amLODIPine 2.5 MG TAB ONE (00:01)
[2023-09-11] MEDS ORDERED: VALSARTAN 80 MG TAB ONE (00:01)
[2023-09-11] MEDS ORDERED: SODIUM CHLORIDE 0.9% 50 ML BAG ONE (00:01)
[2023-09-11] MEDS ORDERED: SODIUM CHLORIDE 0.9% 250 ML BAG ONE (00:01)
[2023-09-11] MEDS ORDERED: DOXAZOSIN 4 MG TAB ONE (00:01)
[2023-09-11] MEDS ORDERED: VANCOMYCIN 1,000 MG VIAL ONE (00:01)
[2023-09-11] MEDS ORDERED: LEVOTHYROXINE 100 MCG TAB ONE (05:43)
[2023-09-11] MEDS ORDERED: ATORVASTATIN 20 MG TAB ONE (08:31)
[2023-09-11] MEDS ORDERED: METOPROLOL TARTRATE 25 MG TAB ONE ×2 (08:31→21:19)
[2023-09-11] MEDS ORDERED: GABAPENTIN 300 MG CAP ONE ×3 (08:32→21:20)
[2023-09-11] MEDS ORDERED: allopurinoL 300 MG TAB PO ONE (08:33)
[2023-09-11] MEDS ORDERED: IBUPROFEN 400 MG TAB ONE (17:12)
[2023-09-11] MEDS ORDERED: traZODone HCL 50 MG TAB ONE (21:20)
[2023-09-11] MEDS ORDERED: MELATONIN 5 MG TABLET ONE (21:20)
[2023-09-12] MEDS ORDERED: CEFEPIME 1 GM VIAL ONE (00:01)
[2023-09-12] MEDS ORDERED: VALSARTAN 80 MG TAB ONE (00:01)
[2023-09-12] MEDS ORDERED: SODIUM CHLORIDE 0.9% 50 ML BAG ONE (00:01)
[2023-09-12] MEDS ORDERED: VANCOMYCIN 1,000 MG VIAL ONE (00:01)
[2023-09-12] MEDS ORDERED: amLODIPine 2.5 MG TAB ONE (00:01)
[2023-09-12] MEDS ORDERED: QUEtiapine 100 MG TAB ONE (00:01)
[2023-09-12] MEDS ORDERED: SODIUM CHLORIDE 0.9% 250 ML BAG ONE (00:01)
[2023-09-12] MEDS ORDERED: DOXAZOSIN 4 MG TAB ONE (00:01)
[2023-09-12] MEDS ORDERED: LEVOTHYROXINE 100 MCG TAB ONE (05:56)
[2023-09-12] MEDS ORDERED: ATORVASTATIN 20 MG TAB ONE (09:46)
[2023-09-12] MEDS ORDERED: METOPROLOL TARTRATE 25 MG TAB ONE ×2 (09:46→20:08)
[2023-09-12] MEDS ORDERED: GABAPENTIN 300 MG CAP ONE ×3 (09:46→20:08)
[2023-09-12] MEDS ORDERED: allopurinoL 300 MG TAB PO ONE (09:46)
[2023-09-12] MEDS ORDERED: BUPIVACAINE (PF) 0.25% 10 ML VIAL ONE (13:00)
[2023-09-12] MEDS ORDERED: LACTATED RINGERS 1,000 ML BAG ONE (13:00)
[2023-09-12] MEDS ORDERED: WATER FOR INJECTION, STERILE 10 ML VIAL IV ONE (13:27)
[2023-09-12] MEDS ORDERED: fentaNYL (PF) 50 MCG/ML 2 ML AMP ONE (13:27)
[2023-09-12] MEDS ORDERED: LIDOCAINE 1% INJ 10MG/ML (20 ML MDV) ONE (13:27)
[2023-09-12] MEDS ORDERED: ePHEDrine 50 MG/ML 1 ML VIAL ONE (13:27)
[2023-09-12] MEDS ORDERED: PROPOFOL 10 MG/ML 20 ML VIAL IV ONE (13:27)
[2023-09-12 14:23] LABS: Glucose,Whole Blood 93 mg/dL (70-110)
[2023-09-12] MEDS ORDERED: IBUPROFEN 400 MG TAB ONE (16:05)
[2023-09-12 17:04] LABS: Glucose,Whole Blood 106 mg/dL (70-110)
[2023-09-12] MEDS ORDERED: ONDANSETRON 4 MG/2 ML VIAL ONE ×2 (18:48)
[2023-09-12] MEDS ORDERED: MELATONIN 5 MG TABLET ONE ×2 (20:08→20:11)
[2023-09-12] MEDS ORDERED: traZODone HCL 50 MG TAB ONE (20:08)
[2023-09-12 20:13] LABS: Glucose,Whole Blood 149 mg/dL (70-110)
[2023-09-13] MEDS ORDERED: SODIUM CHLORIDE 0.9% 50 ML BAG ONE (00:01)
[2023-09-13] MEDS ORDERED: QUEtiapine 100 MG TAB ONE (00:01)
[2023-09-13] MEDS ORDERED: VALSARTAN 80 MG TAB ONE (00:01)
[2023-09-13] MEDS ORDERED: CEFEPIME 1 GM VIAL ONE (00:01)
[2023-09-13] MEDS ORDERED: SODIUM CHLORIDE 0.9% 250 ML BAG ONE (00:01)
[2023-09-13] MEDS ORDERED: VANCOMYCIN 1,000 MG VIAL ONE (00:01)
[2023-09-13] MEDS ORDERED: DOXAZOSIN 4 MG TAB ONE (00:01)
[2023-09-13] MEDS ORDERED: ONDANSETRON 4 MG/2 ML VIAL ONE ×4 (00:15→08:14)
[2023-09-13] MEDS ORDERED: CEFEPIME 2 GM VIAL IVPB ONE ×2 (04:02→19:39)
[2023-09-13] MEDS ORDERED: LEVOTHYROXINE 100 MCG TAB ONE (06:48)
[2023-09-13 07:53] LABS: Glucose,Whole Blood 109 mg/dL (70-110)
[2023-09-13] MEDS ORDERED: ASPIRIN 81 MG ONE (08:58)
[2023-09-13] MEDS ORDERED: ATORVASTATIN 20 MG TAB ONE (08:58)
[2023-09-13] MEDS ORDERED: GABAPENTIN 300 MG CAP ONE ×3 (08:59→19:35)
[2023-09-13] MEDS ORDERED: ENOXAPARIN 40 MG/0.4 ML SYRINGE SQ ONE (08:59)
[2023-09-13] MEDS ORDERED: allopurinoL 300 MG TAB PO ONE (08:59)
[2023-09-13 12:40] LABS: Glucose,Whole Blood 123 mg/dL (70-110)
[2023-09-13 17:41] LABS: Glucose,Whole Blood 110 mg/dL (70-110)
[2023-09-13] MEDS ORDERED: METOPROLOL TARTRATE 25 MG TAB ONE (19:34)
[2023-09-13] MEDS ORDERED: MELATONIN 5 MG TABLET ONE (19:35)
[2023-09-13] MEDS ORDERED: traZODone HCL 50 MG TAB ONE (19:35)
[2023-09-13 19:41] LABS: Glucose,Whole Blood 174 mg/dL (70-110)
[2023-09-14] MEDS ORDERED: CEFEPIME 2 GM VIAL IVPB ONE (04:01)
[2023-09-14] MEDS ORDERED: LEVOTHYROXINE 100 MCG TAB ONE (05:55)
[2023-09-14 07:26] LABS: Glucose,Whole Blood 108 mg/dL (70-110)
[2023-09-14] MEDS ORDERED: GABAPENTIN 300 MG CAP ONE (09:11)
[2023-09-14] MEDS ORDERED: ENOXAPARIN 40 MG/0.4 ML SYRINGE SQ ONE (09:11)
[2023-09-14] MEDS ORDERED: ASPIRIN 81 MG ONE (09:11)
[2023-09-14] MEDS ORDERED: ATORVASTATIN 20 MG TAB ONE (09:11)
[2023-09-14] MEDS ORDERED: allopurinoL 300 MG TAB PO ONE (09:11)
[2023-09-14] MEDS ORDERED: METOPROLOL TARTRATE 25 MG TAB ONE (09:11)
[2023-09-14 12:23] LABS: Glucose,Whole Blood 130 mg/dL (70-110)
[2023-09-14] MEDS ORDERED: AMOXIC-POT CLAV 875-125MG 1 EACH TAB ONE (13:24)
[2023-10-03 14:19] LABS: HCT 35.7 % (39.0-53.0); HGB 11.8 gm/dL (13.0-17.5); MCH 30.9 pg (25.0-35.0); MCHC 33.1 g/dL (31.0-37.0); MCV 93.6 fL (80.0-100.0); Platelet Count 268 k/uL (150-450); RBC 3.81 m/uL (4.30-5.90); RDW 14.5 % (11.5-15.5); WBC 7.5 k/uL (3.8-10.6)
[2023-10-03 14:20] LABS: Basophils # (A) 0.1 k/uL (0-0.2); Basophils % (A) 1 %; Eosinophils # (A) 0.6 k/uL (0-0.7); Eosinophils % (A) 9 %; Lymphocytes # (A) 1.1 k/uL (1.0-4.8); Lymphocytes % (A) 15 %; Monocytes # (A) 0.4 k/uL (0-1.0); Monocytes % (A) 5 %; Neutrophils # (A) 5.2 k/uL (1.3-7.7); Neutrophils % (A) 69.4
== END 2023-09-14 14:30 | disposition home or self-care (01) ==
LOC: EC 15:43 → 5NMEDONC 22:27
PROVIDERS: ADMIT Internal Medicine; ATTEND Internal Medicine
DX: L03.031 Cellulitis of right toe (principal); L02.611 Cutaneous abscess of right foot; M86.9 Osteomyelitis, unspecified; M1A.9XX1 Chronic gout, unspecified, with tophus (tophi); I11.0 Hypertensive heart disease with heart failure; I50.42 Chronic combined systolic (congestive) and diastolic (congestive) heart failure; J44.9 Chronic obstructive pulmonary disease, unspecified; E78.5 Hyperlipidemia, unspecified; F31.9 Bipolar disorder, unspecified; F41.9 Anxiety disorder, unspecified; I25.10 Atherosclerotic heart disease of native coronary artery without angina pectoris; I25.2 Old myocardial infarction; Z87.891 Personal history of nicotine dependence; Z89.612 Acquired absence of left leg above knee; Z95.0 Presence of cardiac pacemaker; Z99.3 Dependence on wheelchair; Z79.1 Long term (current) use of non-steroidal anti-inflammatories (NSAID); Z79.82 Long term (current) use of aspirin; Z79.890 Hormone replacement therapy; Z79.899 Other long term (current) drug therapy
CPT/HCPCS: 36415; 80053; 80048 ×2; 85652 ×2; 83735; 84550; 85025 ×3; 86140 ×2; 87040; 87070; 87205; 73630; J2543 ×2; J3370 ×2; J0692 ×2; J1650 ×2; 80202; 85027; 88305; 88311; 94640; 96365; 96366; 96367; 96372; 99285

== ENCOUNTER 2023-10-01 09:10 | Inpatient (IN) | payer OTHER ==
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
[2023-10-01 10:25] LABS: African American GFR (CKD) 79 (>60 ml/min/1.73 sqM); Anion Gap 12 mmol/L; Blood Urea Nitrogen 31 mg/dL (9-20); Calcium 9.9 mg/dL (8.4-10.2); Carbon Dioxide 18 mmol/L (22-30); Chloride 111 mmol/L (98-107); Glucose 146 mg/dL (74-99); Non-African American GFR(CKD) 68 (>60 ml/min/1.73 sqM); Potassium 4.1 mmol/L (3.5-5.1); Sodium 141 mmol/L (137-145)
--- NOTE | 2023-10-01 10:28 | XR ---
EXAMINATION TYPE: XR foot complete RT DATE OF EXAM: 10/01/2023 COMPARISON: 01/27/2014 HISTORY: Pain TECHNIQUE: Three views are submitted. FINDINGS: Chronic deformities of the MTP joint of all digits. Diffuse soft tissue edema. There is reduced mineralization of the head of the fifth metatarsal suspic ious for osteomyelitis. Severe first MTP joint arthropathy with mild erosive change. Hallux valgus deformity. Diffuse osteope james. Calcaneal spur. Chronic deformity of the distal tibia and fibula. IMPRESSION: 1. Post amputation fifth digit with lucency of the head of the fifth metatarsal suspicious for osteom yelitis. Consider triple phase bone scan.
[2023-10-01 10:40] LABS: Basophils # (A) 0.1 k/uL (0-0.2); Basophils % (A) 1 %; Eosinophils # (A) 2.6 k/uL (0-0.7); Eosinophils % (A) 23 %; HCT 43.9 % (39.0-53.0); HGB 14.6 gm/dL (13.0-17.5); Lymphocytes # (A) 1.9 k/uL (1.0-4.8); Lymphocytes % (A) 16 %; MCH 30.6 pg (25.0-35.0); MCHC 33.2 g/dL (31.0-37.0); Mean Platelet Volume 8.6; Monocytes # (A) 0.5 k/uL (0-1.0); Monocytes % (A) 4 %; Neutrophils # (A) 6.1 k/uL (1.3-7.7); Neutrophils % (A) 54 %; Platelet Count 206 k/uL (150-450); Poikilocytosis Slight; RBC 4.77 m/uL (4.30-5.90); RDW 15.4 % (11.5-15.5); WBC 11.3 k/uL (3.8-10.6)
[2023-10-01 10:56] LABS: C Reactive Protein 0.8 mg/dL (<1.0)
[2023-10-01] MEDS ORDERED: NALOXONE 0.4 MG/ML 1 ML VIAL IV PRN (11:20)
[2023-10-01] MEDS ORDERED: ACETAMINOPHEN TAB 325 MG TAB PO PRN (11:20)
[2023-10-01] MEDS ORDERED: VANCOMYCIN IV PER PHARMACY 1 EACH MISC MISCELLANE PRN (11:23)
[2023-10-01] MEDS: HYDROcodone/APAP 5-325MG 1 EACH TAB PO STA (11:29)
[2023-10-01] MEDS: SODIUM CHLORIDE 0.9% 1,000 ML IV SCH (11:30)
[2023-10-01] MEDS: VANCOMYCIN 1,250 MG in SODIUM CHLORIDE 0.9% 250 ML IVPB STA (12:02)
[2023-10-01] MEDS ORDERED: FLUTICASONE NASAL 50MCG/SPRAY 16GM BTL EA NOSTRIL PRN (12:45)
[2023-10-01] MEDS ORDERED: traZODone HCL 50 MG TAB PO PRN (12:45)
[2023-10-01] MEDS ORDERED: ALBUTEROL NEBULIZED 2.5 MG/3 ML INHALATION PRN (12:45)
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
[2023-10-01] MEDS: METOPROLOL TARTRATE 25 MG TAB PO SCH (13:27)
[2023-10-01] MEDS: amLODIPine 2.5 MG TAB PO SCH (13:27)
[2023-10-01] MEDS: PIPERACILLIN-TAZOBACTAM 3.375 GM in SODIUM CHLORIDE 0.9% 100 ML IVPB SCH (15:38)
[2023-10-01] MEDS: GABAPENTIN 100 MG CAP PO SCH (15:38)
[2023-10-01] MEDS: DOXAZOSIN 4 MG TAB PO SCH (20:44)
[2023-10-01] MEDS: MELATONIN 5 MG TABLET PO SCH (20:44)
[2023-10-01] MEDS: VALSARTAN 80 MG TAB PO SCH (20:44)
[2023-10-02] MEDS: LEVOTHYROXINE 100 MCG TAB PO SCH (06:18)
[2023-10-02] MEDS: allopurinoL 300 MG TAB PO SCH (08:50)
[2023-10-02] MEDS: ATORVASTATIN 20 MG TAB PO SCH (08:50)
[2023-10-02] MEDS: ASPIRIN 81 MG PO SCH (08:50)
[2023-10-02] MEDS: HYDROcodone/APAP 5-325MG 1 EACH TAB PO PRN (08:53)
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
[2023-10-02 09:43] LABS: ALT 32 U/L (10-49); AST 30 U/L (14-35); Albumin 4.1 g/dL (3.8-4.9); Albumin/Globulin Ratio 2.16 Ratio (1.60-3.17); Alkaline Phosphatase 70 U/L (41-126); BUN/Creat Ratio 23.25 Ratio (12.00-20.00); Blood Urea Nitrogen 27.9 mg/dL (9.0-27.0); Calcium 8.7 mg/dL (8.7-10.3); Carbon Dioxide 18.9 mmol/L (21.6-31.8); Chloride 108 mmol/L (96-109); Globulin 1.9 g/dL (1.6-3.3); Glucose 116 mg/dL (70-110); Potassium 4.2 mmol/L (3.5-5.5); Sodium 141 mmol/L (135-145); Total Bilirubin 0.5 mg/dL (0.3-1.2)
[2023-10-02 10:30] LABS: Basophils # (A) 0.09 X 10*3/uL (0.00-0.10); Basophils % (A) 0.8 %; Eosinophils # (A) 2.46 X 10*3/uL (0.04-0.35); Eosinophils % (A) 22.7 %; HCT 38.1 % (39.6-50.0); HGB 12.5 g/dL (13.0-17.0); Lymphocytes # (A) 1.97 X 10*3/uL (0.90-5.00); Lymphocytes % (A) 18.2 %; MCHC 32.8 g/dL (32.0-37.0); MCV 91.4 FL (80.0-97.0); Mean Platelet Volume 11.1 FL (9.5-12.2); Monocytes # (A) 0.58 X 10*3/uL (0.20-1.00); Monocytes % (A) 5.4 %; NRBC Per 100 WBC 0 X 10*3/uL (0.00-0.01); Neutrophils # (A) 5.65 X 10*3/uL (1.80-7.70); Neutrophils % (A) 52.2 %; Platelet Count 183 X 10*3/uL (140-440); RBC 4.17 X 10*6/uL (4.40-5.60); RDW 14.6 % (11.5-14.5); WBC 10.83 X 10*3/uL (4.50-10.00)
[2023-10-02 10:31] LABS: RBC Morphology Normal (Normal)
[2023-10-02] MEDS: VANCOMYCIN 1,250 MG in SODIUM CHLORIDE 0.9% 250 ML IVPB SCH (11:14)
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
--- NOTE | 2023-10-02 13:06 | P.PN ---
Subjective Progress Note Date: 10/02/23 patient is a 78-year-old gentleman with past medical history significant for systolic and diastolic CHF EF 30-35 %, hyperlipidemia, hypertension, CAD, COPD, status post left above-knee amputation, wheelchair-bound, recent amputation of right fifth toe who presented to the for worsening pain and discharge from the right foot wound. Patient stated he was all right a week ago when he started noticing increasing pain in his right foot, patient also noticed discharge which was puslike from the right foot wound. There was no complaint of fever or chills. Denies any lightheadedness or dizziness. There was no complaint of swelling of feet. Denies any chest pain or shortness of breath. Because of th is patient presented to the ER. Initial lab work done in the ER showed WBC 11.3, hemoglobin 14.6, platelet count 206, sodium 141, potassium 4.1, BUN 31, creatinine 1.06, glucose 146, CRP 0.8 X-ray foot done post amputation fifth digit with lucency of the head of the fifth metatarsal suspicious for acute osteo Patient admitted to internal medicine service 10/01. Patient seen and examined. States he feels better, right foot pain has improved. REVIEW OF SYSTEMS: CONSTITUTIONAL: No fever, no malaise,. CARDIOVASCULAR: No chest pain, no palpitations, no syncope. PULMONARY: No shortness of breath, no cough, GASTROINTESTINAL: No diarrhea, no nausea, no vomiting, no abdominal pain. NEUROLOGICAL: No headaches, no weakness, PHYSICAL EXAMINATION: GENERAL: The patient is alert and oriented x3, not in any acute distress. Well developed, well nourished. HEENT: Pupils are round and equally reacting to light. EOMI. No scleral icterus. No conjunctival pallor. Normocephalic, atraumatic. No pharyngeal erythema. No thyromegaly. CARDIOVASCULAR: S1 and S2 present. No murmurs, rubs, or gallops. PULMONARY: Chest is clear to auscultation, no wheezing or crackles. ABDOMEN: Soft, nontender, nondistended, normoactive bowel sounds. No palpable organomegaly. MUSCULOSKELETAL: Left AKA, right foot erythema noticeable the site of right fifth toe amputation EXTREMITIES: No cyanosis, clubbing, or pedal edema. NEUROLOGICAL: Gross neurological examination did not reveal any focal deficits. SKIN: No rashes. Assessment and plan Right foot postop infection Right foot osteomyelitis Hypothyroidism Hypertension History of COPD Chronic systolic and diastolic CHF Monitor vital signs Monitor CBC Monitor CMP Follow-up on blood cultures Follow-up on wound cultures Continue IV vancomycin Bone scan ordered ID following Orthopedic following, recommended no surgical intervention, do not think it is infected. Labs and medication were reviewed.. Continue same treatment. Continue with symptomatic treatment. Resume home medication. Monitor labs and vitals. DVT and GI prophylaxis. Further recommendations as per clinical course of the patient Dictation was produced using [employer] dictation software. please excuse any grammatical, word or spelling errors. Objective - Vital Signs Vital signs: Vital Signs Temp 97.4 F L 10/02/23 07:14 Pulse 58 L 10/02/23 07:14 Resp 16 10/02/23 07:14 BP 125/67 10/02/23 07:14 Pulse Ox 94 L 10/02/23 07:14 FiO2 Intake & Output 10/01/23 10/02/23 10/02/23 18:59 06:59 18:59 Intake Total 540 480 Output Total 450 Balance 540 -450 480 Weight 61.235 kg Intake: Oral 540 480 Output: Urine 450 Other: # Voids 1 - Labs CBC & Chem 7: 10/02/23 02:34 10/02/23 02:34 Labs: Abnormal Lab Results - Last 24 Hours (Table) 10/01/23 10/01/23 Range/Units 09:55 09:55 WBC 11.3 H (3.8-10.6) k/uL Eosinophils # 2.6 H (0-0.7) k/uL Chloride 111 H (98-107) mmol/L Carbon Dioxide 18 L (22-30) mmol/L BUN 31 H (9-20) mg/dL Glucose 146 H (74-99) mg/dL
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
[2023-10-02] MEDS: QUEtiapine 100 MG TAB PO SCH (21:22)
[2023-10-03 09:29] LABS: ALT 33 U/L (10-49); AST 29 U/L (14-35); Albumin/Globulin Ratio 2.22 Ratio (1.60-3.17); Alkaline Phosphatase 75 U/L (41-126); BUN/Creat Ratio 22.75 Ratio (12.00-20.00); Blood Urea Nitrogen 27.3 mg/dL (9.0-27.0); Calcium 8.7 mg/dL (8.7-10.3); Carbon Dioxide 21.1 mmol/L (21.6-31.8); Chloride 108 mmol/L (96-109); Globulin 1.8 g/dL (1.6-3.3); Glucose 117 mg/dL (70-110); Potassium 3.9 mmol/L (3.5-5.5); Sodium 140 mmol/L (135-145); Total Bilirubin 0.4 mg/dL (0.3-1.2); Total Protein 5.8 g/dL (6.2-8.2)
[2023-10-03 09:42] LABS: HCT 35.9 % (39.6-50.0); HGB 11.7 g/dL (13.0-17.0); MCH 29.8 pg (27.0-32.0); MCHC 32.6 g/dL (32.0-37.0); MCV 91.6 FL (80.0-97.0); Mean Platelet Volume 11.1 FL (9.5-12.2); NRBC Per 100 WBC 0 X 10*3/uL (0.00-0.01); Platelet Count 181 X 10*3/uL (140-440); RBC 3.92 X 10*6/uL (4.40-5.60); RDW 14.5 % (11.5-14.5); WBC 8.06 X 10*3/uL (4.50-10.00)
[2023-10-03 09:43] LABS: Basophils # (A) 0.09 X 10*3/uL (0.00-0.10); Basophils % (A) 1.1 %; Eosinophils # (A) 2.15 X 10*3/uL (0.04-0.35); Eosinophils % (A) 26.7 %; Lymphocytes # (A) 1.56 X 10*3/uL (0.90-5.00); Lymphocytes % (A) 19.4 %; Monocytes # (A) 0.43 X 10*3/uL (0.20-1.00); Monocytes % (A) 5.3 %; Neutrophils # (A) 3.74 X 10*3/uL (1.80-7.70); Neutrophils % (A) 46.4 %
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
--- NOTE | 2023-10-03 13:01 | P.PN ---
Subjective Progress Note Date: 10/03/23 patient is a 78-year-old gentleman with past medical history significant for systolic and diastolic CHF EF 30-35 %, hyperlipidemia, hypertension, CAD, COPD, status post left above-knee amputation, wheelchair-bound, recent amputation of right fifth toe who presented to the for worsening pain and discharge from the right foot wound. Patient stated he was all right a week ago when he started noticing increasing pain in his right foot, patient also noticed discharge which was puslike from the right foot wound. There was no complaint of fever or chills. Denies any lightheadedness or dizziness. There was no complaint of swelling of feet. Denies any chest pain or shortness of breath. Because of th is patient presented to the ER. Initial lab work done in the ER showed WBC 11.3, hemoglobin 14.6, platelet count 206, sodium 141, potassium 4.1, BUN 31, creatinine 1.06, glucose 146, CRP 0.8 X-ray foot done post amputation fifth digit with lucency of the head of the fifth metatarsal suspicious for acute osteo Patient admitted to internal medicine service 10/01. Patient seen and examined. States he feels better, right foot pain has improved. 10/02. Patient seen and examined. Nuclear bone scan scheduled for today. States foot pain has improved he denies any fever or chills REVIEW OF SYSTEMS: CONSTITUTIONAL: No fever, no malaise,. CARDIOVASCULAR: No chest pain, no palpitations, no syncope. PULMONARY: No shortness of breath, no cough, GASTROINTESTINAL: No diarrhea, no nausea, no vomiting, no abdominal pain. NEUROLOGICAL: No headaches, no weakness, PHYSICAL EXAMINATION: GENERAL: The patient is alert and oriented x3, not in any acute distress. Well developed, well nourished. HEENT: Pupils are round and equally reacting to light. EOMI. No scleral icterus. No conjunctival pallor. Normocephalic, atraumatic. No pharyngeal erythema. No thyromegaly. CARDIOVASCULAR: S1 and S2 present. No murmurs, rubs, or gallops. PULMONARY: Chest is clear to auscultation, no wheezing or crackles. ABDOMEN: Soft, nontender, nondistended, normoactive bowel sounds. No palpable organomegaly. MUSCULOSKELETAL: Left AKA, right foot erythema noticeable the site of right fifth toe amputation EXTREMITIES: No cyanosis, clubbing, or pedal edema. NEUROLOGICAL: Gross neurological examination did not reveal any focal deficits. SKIN: No rashes. Assessment and plan Right foot postop infection Right foot osteomyelitis Hypothyroidism Hypertension History of COPD Chronic systolic and diastolic CHF Monitor vital signs Monitor CBC Monitor CMP Follow-up on blood cultures Follow-up on wound cultures Continue IV vancomycin Bone scan ordered ID following Orthopedic following, recommended no surgical intervention, do not think it is infected. Labs and medication were reviewed.. Continue same treatment. Continue with symptomatic treatment. Resume home medication. Monitor labs and vitals. DVT and GI prophylaxis. Further recommendations as per clinical course of the patient Dictation was produced using [employer] dictation software. please excuse any grammatical, word or spelling errors. Objective - Vital Signs Vital signs: Vital Signs Temp 97.3 F L 10/03/23 07:03 Pulse 64 10/03/23 07:03 Resp 15 10/03/23 07:03 BP 119/77 10/03/23 07:03 Pulse Ox 98 10/03/23 07:03 FiO2 Intake & Output 10/02/23 10/03/23 10/03/23 18:59 06:59 18:59 Intake Total 2760 480 Output Total 800 Balance 1960 480 Intake: Oral 2760 480 Output: Urine 800 Other: # Voids 3 # Bowel Movements 1 - Labs CBC & Chem 7: 10/03/23 04:34 10/03/23 04:34 Labs: Abnormal Lab Results - Last 24 Hours (Table) 10/02/23 10/03/23 10/03/23 Range/Units 02:34 04:34 04:34 WBC 10.83 H (4.50-10.00) X 10*3/uL RBC 4.17 L 3.92 L (4.40-5.60) X 10*6/uL Hgb 12.5 L 11.7 L (13.0-17.0) g/dL Hct 38.1 L 35.9 L (39.6-50.0) % RDW 14.6 H (11.5-14.5) % Immature Gran # 0.08 H 0.09 H (0.00-0.04) X 10*3/uL Eosinophils # 2.46 H 2.15 H (0.04-0.35) X 10*3/uL Carbon Dioxide 21.1 L (21.6-31.8) mmol/L BUN 27.3 H (9.0-27.0) mg/dL BUN/Creatinine Ratio 22.75 H (12.00-20.00) Ratio Glucose 117 H (70-110) mg/dL Total Protein 5.8 L (6.2-8.2) g/dL Microbiology - Last 24 Hours (Table) 10/01/23 11:57 Blood Culture - Preliminary Blood
--- NOTE | 2023-10-03 14:19 | NM ---
EXAMINATION TYPE: NM bone 3 phase DATE OF EXAM: 10/03/2023 COMPARISON: Right foot radiograph 10/01/2023, 01/27/2014, nuclear medicine bone phase scan 03/10/2016 CLINICAL INDICATION: Male, 78 years old with history of Abnormal x-ray and recent right fifth toe amp utation; Triple phase bone scintigraphy was performed following the injection of 23.3 mCi Tc 99m MDP. Immedia te images and 5 hours post injection images acquired. FINDINGS: No focal uptake identified on flow phase. Focal uptake identified on the blood pool phase within the tibiotalar joint space and lateral cuneiform. Additional uptake identified within the fifth distal me tatarsal amputation site, distal third and fourth digits on the blood pool phase. There is some uptak e within these regions on the delayed phase. Findings are nonspecific but likely relate to degenerati ve change and postoperative change. IMPRESSION: Radiotracer uptake suggesting degenerative change/postoperative change with osteomyelitis thought to be less likely.
[2023-10-03] MEDS ORDERED: MELATONIN 5 MG TABLET ONE (21:00)
[2023-10-03] MEDS ORDERED: METOPROLOL TARTRATE 25 MG TAB ONE (23:00)
[2023-10-03] MEDS ORDERED: GABAPENTIN 100 MG CAP ONE (23:00)
[2023-10-03] MEDS ORDERED: QUEtiapine 100 MG TAB ONE (23:00)
[2023-10-03] MEDS ORDERED: DOXAZOSIN 4 MG TAB ONE (23:27)
[2023-10-03] MEDS ORDERED: VALSARTAN 80 MG TAB ONE (23:27)
[2023-10-04 08:35] VITALS: BP 122/72; PULSE 52; RESP 16; TEMP 97.6
--- NOTE | 2023-10-04 11:32 | P.DS ---
Providers Date of admission: 10/01/23 11:20 Expected date of discharge: 10/04/23 Attending physician: Kingsley Ceja Consults: 10/01/23 11:20 Consult Physician Routine Consulting Provider: Shavonne Tinoco Consult Reason/Comments: osteomyelitis on xr Do you want consulting provider notified?: Yes 10/01/23 11:26 Consult Physician Routine Consulting Provider: Pascual Valencia Consult Reason/Comments: foot osteo Do you want consulting provider notified?: Yes Primary care physician: Suresh Jeronimo MD Hospital Course: Discharge diagnoses; Right foot postop infection Right foot osteomyelitis ruled out Hypothyroidism Hypertension History of COPD Chronic systolic and diastolic CHF Hospital course; patient is a 78-year-old gentleman with past medical history significant for systolic and diastolic CHF EF 30-35 %, hyperlipidemia, hypertension, CAD, COPD, status post left above-knee amputation, wheelchair-bound, recent amputation of right fifth toe who presented to the for worsening pain and discharge from the right foot wound. Patient stated he was all right a week ago when he started noticing increasing pain in his right foot, patient also noticed discharge which was puslike from the right foot wound. There was no complaint of fever or chills. Denies any lightheadedness or dizziness. There was no complaint of swelling of feet. Denies any chest pain or shortness of breath. Because of this patient presented to the ER. Initial lab work done in the ER showed WBC 11.3, hemoglobin 14.6, platelet count 206, sodium 141, potassium 4.1, BUN 31, creatinine 1.06, glucose 146, CRP 0.8 X-ray foot done post amputation fifth digit with lucency of the head of the fifth metatarsal suspicious for acute osteo Patient admitted to internal medicine service 10/01. Patient seen and examined. States he feels better, right foot pain has improved. 10/02. Patient seen and examined. Nuclear bone scan scheduled for today. States foot pain has improved he denies any fever or chills 10/03. Patient seen and examined. Nuclear bone scan done showed low probability for infection. Discussed with ID, recommended no antibiotics at this time PHYSICAL EXAMINATION: GENERAL: The patient is alert and oriented x3, not in any acute distress. Well developed, well nourished. HEENT: Pupils are round and equally reacting to light. EOMI. No scleral icterus. No conjunctival pallor. Normocephalic, atraumatic. No pharyngeal erythema. No thyromegaly. CARDIOVASCULAR: S1 and S2 present. No murmurs, rubs, or gallops. PULMONARY: Chest is clear to auscultation, no wheezing or crackles. ABDOMEN: Soft, nontender, nondistended, normoactive bowel sounds. No palpable organomegaly. MUSCULOSKELETAL: Left AKA, right foot erythema noticeable the site of right fifth toe amputation EXTREMITIES: No cyanosis, clubbing, or pedal edema. NEUROLOGICAL: Gross neurological examination did not reveal any focal deficits. SKIN: No rashes. Dictation was produced using [employer] dictation software. please excuse any grammatical, word or spelling errors. Patient Condition at Discharge: Fair Plan - Discharge Summary Discharge Rx Participant: No New Discharge Prescriptions: Continue QUEtiapine [SEROquel] 100 mg PO HS allopurinoL [Zyloprim] 300 mg PO DAILY Ipratropium-Albuterol Nebulize [Duoneb 0.5 mg-3 mg/3 ml Soln] 3 ml INHALATION RT-Q6H PRN PRN Reason: Shortness Of Breath Or Wheezing Doxazosin [Cardura] 4 mg PO HS Melatonin 5 mg PO HS traZODone HCL [Desyrel] 25 mg PO HS traZODone HCL [Desyrel] 25 mg PO HS PRN PRN Reason: Insomnia Acetaminophen Tab [Tylenol] 1,000 mg PO TID PRN PRN Reason: Fever And/ Or Pain Valsartan [Diovan] 80 mg PO HS Rogers-3/Dha/Epa/Fish Oil [Fish Oil EC 1,200 mg Softgel] 1 cap PO BID Fluticasone Nasal Thomson [Flonase Nasal Thomson] 1 spray EA NOSTRIL DAILY PRN PRN Reason: Allergy Symptoms Albuterol Sulfate [Albuterol Sulfate Hfa] 1 - 2 puff PO RT-Q4H PRN PRN Reason: Shortness Of Breath Levothyroxine Sodium [Synthroid] 200 mcg PO DAILY Ergocalciferol (Vitamin D2) [Drisdol (50,000 Iu)] 1,250 mcg PO Q7D Aspirin [[place] Aspirin EC] 81 mg PO DAILY Metoprolol Tartrate [Lopressor] 25 mg PO BID #60 tab Nitroglycerin Sl Tabs [Nitrostat] 0.4 mg SUBLINGUAL Q5M PRN #120 tab PRN Reason: Chest Pain amLODIPine [Norvasc] 2.5 mg PO DAILY Meloxicam [Mobic] 7.5 mg PO DAILY Atorvastatin [Lipitor] 20 mg PO DAILY Gabapentin [Neurontin] 100 mg PO TID Discharge Medication List QUEtiapine [SEROquel] 100 mg PO HS 12/02/13 [History] allopurinoL [Zyloprim] 300 mg PO DAILY 04/07/19 [History] Aspirin [[place] Aspirin EC] 81 mg PO DAILY 03/23/22 [History] Doxazosin [Cardura] 4 mg PO HS 03/23/22 [History] Ipratropium-Albuterol Nebulize [Duoneb 0.5 mg-3 mg/3 ml Soln] 3 ml INHALATION RT-Q6H PRN 03/23/22 [History] Metoprolol Tartrate [Lopressor] 25 mg PO BID #60 tab 03/24/22 [Rx] Nitroglycerin Sl Tabs [Nitrostat] 0.4 mg SUBLINGUAL Q5M PRN #120 tab 03/24/22 [Rx] Melatonin 5 mg PO HS 02/06/23 [History] amLODIPine [Norvasc] 2.5 mg PO DAILY 02/06/23 [History] traZODone HCL [Desyrel] 25 mg PO HS 02/06/23 [History] Acetaminophen Tab [Tylenol] 1,000 mg PO TID PRN 09/08/23 [History] Albuterol Sulfate [Albuterol Sulfate Hfa] 1 - 2 puff PO RT-Q4H PRN 09/08/23 [Hi story] Atorvastatin [Lipitor] 20 mg PO DAILY 09/08/23 [History] Fluticasone Nasal Thomson [Flonase Nasal Thomson] 1 spray EA NOSTRIL DAILY PRN 09/08/23 [History] Levothyroxine Sodium [Synthroid] 200 mcg PO DAILY 09/08/23 [History] Meloxicam [Mobic] 7.5 mg PO DAILY 09/08/23 [History] Rogers-3/Dha/Epa/Fish Oil [Fish Oil EC 1,200 mg Softgel] 1 cap PO BID 09/08/23 [History] Valsartan [Diovan] 80 mg PO HS 09/08/23 [History] traZODone HCL [Desyrel] 25 mg PO HS PRN 09/08/23 [History] Ergocalciferol (Vitamin D2) [Drisdol (50,000 Iu)] 1,250 mcg PO Q7D 10/01/23 [History] Gabapentin [Neurontin] 100 mg PO TID 10/01/23 [History] Follow up Appointment(s)/Referral(s): Suresh Jeronimo MD [Primary Care Provider] - 1-2 days (Jimy Borjas) Shavonne Tinoco MD [STAFF PHYSICIAN] - 1 Week Discharge Disposition: HOME SELF-CARE
[2023-10-04] MEDS: VANCOMYCIN TROUGH DUE 1 EACH MISC MISCELLANE ONE (11:52)
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
[2023-10-07] MEDS ORDERED: ERGOCALCIFEROL 1,250 MCG (50,000 IU) CAPSULE PO SCH (09:00)
== END 2023-10-04 12:40 | disposition home health service (06) | DRG 863 ==
LOC: EC 09:10 → 5NMEDONC 11:20
PROVIDERS: ADMIT Hospitalist; ATTEND Hospitalist
DX: T81.49XA Infection following a procedure, other surgical site, initial encounter (principal); F31.30 Bipolar disorder, current episode depressed, mild or moderate severity, unspecified; I50.42 Chronic combined systolic (congestive) and diastolic (congestive) heart failure; I11.0 Hypertensive heart disease with heart failure; Z89.612 Acquired absence of left leg above knee; E03.9 Hypothyroidism, unspecified; J44.89 Other specified chronic obstructive pulmonary disease; E78.5 Hyperlipidemia, unspecified; F41.9 Anxiety disorder, unspecified; H54.61 Unqualified visual loss, right eye, normal vision left eye; I25.10 Atherosclerotic heart disease of native coronary artery without angina pectoris; N32.81 Overactive bladder; B99.9 Unspecified infectious disease; Y83.5 Amputation of limb(s) as the cause of abnormal reaction of the patient, or of later complication, without mention of misadventure at the time of the procedure; I25.2 Old myocardial infarction; Z99.3 Dependence on wheelchair; Z96.651 Presence of right artificial knee joint; Z87.891 Personal history of nicotine dependence; Z95.0 Presence of cardiac pacemaker; Z79.82 Long term (current) use of aspirin; Z79.899 Other long term (current) drug therapy; Z79.890 Hormone replacement therapy; Z79.1 Long term (current) use of non-steroidal anti-inflammatories (NSAID)
CPT/HCPCS: 36415; 78315; 80048; 80053; 85025; 85652; 86140; 87040; 96365; 99285

== ENCOUNTER 2023-12-30 17:58 | Emergency (ER) | payer OTHER ==
[2023-12-30 18:13] VITALS: TEMP 97.5
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
--- NOTE | 2023-12-30 19:16 | XR ---
EXAMINATION TYPE: XR chest 2V DATE OF EXAM: 12/30/2023 7:08 PM COMPARISON: Chest radiographs from 04/21/2023 CLINICAL INDICATION: Male, 78 years old with history of Dizziness; [facility] TECHNIQUE: XR chest 2V Frontal and lateral views of the chest. FINDINGS: Lungs/Pleura: There is no evidence of pleural effusion, focal consolidation, or pneumothorax. Pulmonary vascularity: Unremarkable. Heart/mediastinum: Cardiomediastinal silhouette is unremarkable. Musculoskeletal: No acute osseous pathology. IMPRESSION: No acute cardiopulmonary disease/process. [facility], , 12/30/2023 7:13 PM
[2023-12-30 19:35] LABS: Basophils # (A) 0.1 k/uL (0-0.2); Basophils % (A) 1 %; Eosinophils # (A) 0.8 k/uL (0-0.7); Eosinophils % (A) 10 %; HCT 40.5 % (39.0-53.0); HGB 13.6 gm/dL (13.0-17.5); Lymphocytes # (A) 1.6 k/uL (1.0-4.8); Lymphocytes % (A) 21 %; MCH 30.5 pg (25.0-35.0); MCHC 33.5 g/dL (31.0-37.0); Mean Platelet Volume 7.7; Monocytes # (A) 0.5 k/uL (0-1.0); Monocytes % (A) 6 %; Neutrophils # (A) 4.5 k/uL (1.3-7.7); Neutrophils % (A) 60 %; Platelet Count 191 k/uL (150-450); RBC 4.45 m/uL (4.30-5.90); WBC 7.6 k/uL (3.8-10.6)
[2023-12-30] MEDS: MECLIZINE 12.5 MG TAB PO STA (19:47)
[2023-12-30 19:51] LABS: ALT 36 U/L (4-49); AST 32 U/L (17-59); African American GFR (CKD) 73 (>60 ml/min/1.73 sqM); Albumin 4.4 g/dL (3.5-5.0); Alkaline Phosphatase 95 U/L (38-126); Anion Gap 8 mmol/L; Blood Urea Nitrogen 24 mg/dL (9-20); Carbon Dioxide 21 mmol/L (22-30); Chloride 112 mmol/L (98-107); Glucose 99 mg/dL (74-99); Magnesium 1.9 mg/dL (1.6-2.3); Non-African American GFR(CKD) 63 (>60 ml/min/1.73 sqM); Potassium 4.1 mmol/L (3.5-5.1); Sodium 141 mmol/L (137-145); Total Bilirubin 0.8 mg/dL (0.2-1.3)
[2023-12-30 19:54] LABS: INR 1.1 (<1.2); Prothrombin Time 11.4 sec (10.0-12.5)
[2023-12-30 19:55] LABS: Partial Thromboplastin Time 27.5 sec (22.0-30.0)
[2023-12-30 21:28] VITALS: BP 152/84; PULSE 72; RESP 16
== END 2023-12-30 21:28 | disposition home or self-care (01) ==
LOC: EEVIPCON 17:58 → EC 17:58
DX: R42 Dizziness and giddiness (principal); T50.905A Adverse effect of unspecified drugs, medicaments and biological substances, initial encounter; I50.9 Heart failure, unspecified; I25.2 Old myocardial infarction; I25.10 Atherosclerotic heart disease of native coronary artery without angina pectoris; Z87.891 Personal history of nicotine dependence; Z79.1 Long term (current) use of non-steroidal anti-inflammatories (NSAID); Z90.49 Acquired absence of other specified parts of digestive tract; Z95.0 Presence of cardiac pacemaker; Z79.899 Other long term (current) drug therapy
CPT/HCPCS: 36415; 71046; 80053; 83605; 83735; 84484; 85025; 85610; 85730; 93005; 99285

== ENCOUNTER 2024-02-06 09:37 | Emergency (ER) | payer OTHER ==
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
--- NOTE | 2024-02-06 12:16 | XR ---
EXAMINATION TYPE: XR chest 2V DATE OF EXAM: 02/06/2024 12:06 PM COMPARISON: 12/30/2023 CLINICAL INDICATION: Male, 78 years old with history of alessio, short of breath for 2 weeks TECHNIQUE: XR chest 2V view(s) obtained. FINDINGS: The heart size is normal. Pacemaker overlies the left chest. The pulmonary vasculature is normal. The lungs are clear. IMPRESSION: 1. No acute pulmonary process. [facility], Workstation: [facility], 02/06/2024 12:13 PM
--- NOTE | 2024-02-06 12:21 | XR ---
EXAMINATION TYPE: XR wrist complete RT DATE OF EXAM: 02/06/2024 12:06 PM COMPARISON: None. CLINICAL INDICATION: Male, 78 years old with history of pain, pain TECHNIQUE: 4 view(s) obtained. 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 Ulnar radial degenerative joint changes ar e present. Some mild degenerative changes of the proximal radiocarpal row is present. If there is cli nical concern for scapholunate disassociation, MRI could be performed. This is not widened by measur ement criteria. No acute fractures evident. Mild diffuse soft tissue swelling may be present. Scaphoid appears intact . Follow up exams can be performed 7-10 days from acute trauma for continued pain. MRI can be perform ed for unexplained pain or soft tissue evaluation IMPRESSION: 1. Degenerative changes discussed above. 2. 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
[2024-02-06 12:26] VITALS: RESP 16
[2024-02-06] MEDS: predniSONE 20 MG TAB PO STA (13:44)
[2024-02-06] MEDS: ACET/COD 300 MG/30 MG STARTER PACK 6 TAB BTL PO STA (13:44)
[2024-02-06 13:54] VITALS: BP 148/98; PULSE 65; TEMP 98
== END 2024-02-06 13:54 | disposition home or self-care (01) ==
LOC: EC 09:37
DX: M25.531 Pain in right wrist (principal); M06.9 Rheumatoid arthritis, unspecified; Z87.891 Personal history of nicotine dependence
CPT/HCPCS: 73110; 71046; 99283; 29125; J7512

== ENCOUNTER 2024-03-27 19:50 | Emergency (ER) | payer OTHER ==
[2024-03-27 19:56] VITALS: RESP 18; TEMP 98.7
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
[2024-03-27 20:49] VITALS: BP 162/84; PULSE 72
== END 2024-03-27 21:56 | disposition home or self-care (01) ==
LOC: EC 19:50
DX: R04.0 Epistaxis (principal); Z87.891 Personal history of nicotine dependence
CPT/HCPCS: 99283

== ENCOUNTER 2024-08-01 00:34 | Emergency (ER) | payer OTHER ==
[2024-08-01] MEDS: ACETAMINOPHEN TAB 500 MG TAB PO STA (01:49)
[2024-08-01 02:50] VITALS: TEMP 97.7
--- NOTE | 2024-08-01 04:49 | XR ---
EXAM: XR Right Hand Complete, 3 or More Views CLINICAL HISTORY: ITS.REASON XR Reason: finger pain TECHNIQUE: Frontal, lateral and oblique views of the right hand. COMPARISON: No relevant prior studies available. FINDINGS: Bones/joints: Severe osteoarthritis of the distal radioulnar joint. Diffuse osseous demineralization. No fracture or dislocation. Soft tissues: Unremarkable. No radiopaque foreign body. IMPRESSION: 1. No fracture or dislocation. 2. Severe osteoarthritis of the distal radioulnar joint.
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
[2024-08-01 05:48] VITALS: BP 101/69; PULSE 70; RESP 16
== END 2024-08-01 06:00 | disposition home or self-care (01) ==
LOC: EC 00:34
DX: S63.91XA Sprain of unspecified part of right wrist and hand, initial encounter (principal); Z87.891 Personal history of nicotine dependence; W19.XXXA Unspecified fall, initial encounter
CPT/HCPCS: 99283